=== PATIENT | female | born 1975 | race American Indian/Alaskan Native ===

== ENCOUNTER 2016-09-13 12:01 | Emergency (ER) | payer MEDICARE, MEDICAID ==
[2016-09-13 12:07] VITALS: BMI 23.8
[2016-09-13 12:20] VITALS: TEMP 98.6
[2016-09-13] MEDS ORDERED: Sodium Chloride 0.9% 1,000 ML IV SCH (12:41)
[2016-09-13] MEDS ORDERED: TRIMETHOPRIM IVPB SCH (12:45)
[2016-09-13] MEDS ORDERED: SULFAMETHOXAZOLE IVPB SCH (12:45)
[2016-09-13] MEDS ORDERED: DEXTROSE 5% IVPB SCH (12:45)
[2016-09-13] MEDS ORDERED: WATER IVPB SCH (12:45)
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
[2016-09-13 13:07] LABS: URINE BILIRUBIN NEGATIVE (NEGATIVE); URINE BLOOD SMALL (NEGATIVE); URINE GLUCOSE (UA) NEGATIVE (NEGATIVE); URINE KETONE NEGATIVE (NEGATIVE); URINE LEUKOCYTE ESTERASE NEGATIVE Leu/uL (NEGATIVE); URINE PROTEIN TRACE mg/dL (<30 mg/dL)
[2016-09-13 13:08] LABS: URINE APPEARANCE CLEAR (CLEAR); URINE COLOR YELLOW (YELLOW)
[2016-09-13 13:10] LABS: URINE AMORPHOUS SEDIMENT FEW; URINE BACTERIA MANY (NEG)
[2016-09-13 13:24] LABS: ADD MANUAL DIFF? NO
[2016-09-13 13:39] LABS: BASO # 0.02 K/mm3 (0.0-2.0); BASO % 0.3 % (0.0-3.0); EOS # 0.1 (0.0-0.7); EOS % 0.9 % (1.5-5.0); GRAN # 4.34 (1.4-6.5); GRAN % 62.8 % (50.0-68.0); HEMATOCRIT 37.4 % (36.0-48.0); LYMPH # 1.9 (1.2-3.4); LYMPH % 27.2 % (22.0-35.0); MEAN CELL VOLUME 90.8 fL (80.0-105.0); MEAN CORPUSCULAR HEMOGLOBIN 31.8 pg (25.0-35.0); MEAN PLATELET VOLUME 9.6 fl (7.0-11.0); MONO # 0.6 (0.1-0.6); MONO % 8.8 % (1.0-6.0); PLATELET COUNT 230 10^3/uL (120.0-450.0); RED CELL DISTRIBUTION WIDTH 12.5 % (11.5-14.5); WHITE BLOOD COUNT 6.9 10^3/ul (4.5-11.0)
[2016-09-13 13:44] LABS: ALKALINE PHOSPHATASE 53 U/L (38-133); ALT/SGPT 23 U/L (7-56); AST/SGOT 18 U/L (15-39); BILIRUBIN,TOTAL 0.6 mg/dL (0.2-1.3); BLOOD UREA NITROGEN 9 mg/dL (7-21); CARBON DIOXIDE 26 mmol/L (21-33); CHLORIDE 108 mmol/L (98-107); GFR AFRICAN-AMERICAN > 60; GLUCOSE,RANDOM 76 mg/dL (70-110); POTASSIUM 4.1 mmol/L (3.6-5.0); SODIUM 138 mmol/L (132-148); TOTAL PROTEIN 7.5 g/dL (5.8-8.3)
[2016-09-13] MEDS ORDERED: Ketamine 10 mg/ml Inj (20 ml) IV ONE (13:57)
[2016-09-13] MEDS ORDERED: Midazolam 5 MG/5 ML VIAL IVP ONE (13:59)
[2016-09-13] MEDS ORDERED: ceFAZolin 1 gm in NS 1 GM/100 ML BAG IVPB STA (14:58)
[2016-09-13 15:12] VITALS: RESP 16
--- NOTE | 2016-09-13 16:12 | ED.MODSED ---
Prod Sedation PRE-PROCEDURE - Pre-Anesthesia Chief Complaint: Abnormal Skin Integrity Past Medical History: Medications Reviewed, Allergies Reviewed, Record Review Previous Surgies: Reviewed Family History/Social History: Reviewed - Physical Exam/Review of Systems Vital Signs Reviewed: Yes Cardiovascular: Regular Rate and Rhythm, Normal S1, S2. denies: Murmurs Respiratory/Chest: Clear to Auscultation, Good Air Exchange. denies: Respiratory Distress, Accessory Muscle Use, Wheezes, Rales, Rhonchi, Tachypneic Neurological: GCS=15, Speech Normal Abdomen: Normal Bowel Sounds. denies: Tenderness, Distention, Peritoneal Signs Mental Status: Alert and Oriented X 3. denies: Confused, Agitated, Lethargic - Pre-Procedure Airway Assessment Inability to extend neck:: No Mouth opening less than two finger breadth:: No Diagnosis of sleep apnea:: No ASA Criteria: 1 - Healthy, normal. 2 - Mild systemic disease (No functional limitations, mildline obesity, DM withot complications, Hypertention). 3 - Severe systemic disease (Some functional limitation, stable angina, morbid obesity, controlled COPD/Asthma/CHF). 4 - Sever systemic disease constant threat to life (Unstable angina, active symptoms of COPD/Asthma, CHF/ Hypertension. 5 - Moribund ASA Clarification: ASA II Mallampati (airway): Class II Time Out Process - Time Out Process Patient identification (MR# and name from ID Band): Yes Procedure verified: Yes Consent read aloud and agreed upon: Yes Correct Site/Side marked and visibe to team after prepping and draping (unless exempt): Yes Implants, special equipment and x-rays available: Not Applicable Prophylactic antibiotic given (if applicable): Yes Correct position: Yes Correct Team: Yes List all team members present: Dr Griffin- Attending. Dr Gamez- Resident. Perla Smith- Nurse All team members are in agreement: Yes Prod Sedation INTRA-PROCEDURE - Medications Medications Given: Discontinued Medications Trimethoprim/Sulfamethoxazole (160 mg/ Dextrose) 500 mls @ 250 mls/hr IVPB Q12 JASE Last Admin: 09/13/16 13:24 Dose: 250 mls/hr Sodium Chloride (Sodium Chloride 0.9%) 1,000 mls @ 100 mls/hr IV .Q10H JASE Last Admin: 09/13/16 13:24 Dose: 100 mls/hr Cefazolin Sodium (Ancef 1gm In Ns) 1 gm in 100 mls @ 100 mls/hr IVPB STAT STA PRN Reason: Protocol Stop: 09/13/16 15:57 Last Admin: 09/13/16 16:11 Dose: 100 mls/hr Ketamine HCl (Ketalar) 130 mg IV ONCE ONE Stop: 09/13/16 13:58 Last Admin: 09/13/16 14:20 Dose: 130 mg Ketorolac Tromethamine (Toradol) 10 mg IVP STAT STA Stop: 09/13/16 12:42 Last Admin: 09/13/16 13:23 Dose: 10 mg Re-Assess: ELVA Pain Assessment Document 09/13/16 14:23 HI (Rec: 09/13/16 16:11 [place] [facility] [id number] Pain Reassessment Is this a pain reassessment? Yes Sleep Is patient sleeping during reassessment? Yes Midazolam HCl (Versed Inj) 1 mg IVP ONCE ONE Stop: 09/13/16 14:00 Last Admin: 09/13/16 14:20 Dose: 1 mg Ondansetron HCl (Zofran Inj) 4 mg IVP ONCE ONE Stop: 09/13/16 15:10 Last Admin: 09/13/16 15:23 Dose: 4 mg Vital Signs: BP 101/65, hr 61, RR 12, O2 sat 98% on room air. Proc Sedation POST-PROCEDURE - REACT Score REACT Score: 2 - Post Procedure Physician Note Post Procedure Note: Patient alert and oriented x3. Patient able to tolerate diet, and able to ambulate. - Discharge Checklist Written MD order for Discharge: Yes Vital signs assessed and are consistent with pre-procedure reading: No (bp 140/ 76, HR 98, RR 8, O2 sat 98% on room air. ) Minimal nausea, vomiting, and dizziness: Yes (no nausea, + vomited x1. ) Ambulates to pre-procedural level: No (lightheaded with ambulation. ) Alert and oriented to pre-procedural level: Yes Responsible adult escort present: Yes (patient's son and daughter in law. ) - X DISCHARGE INSTRUCTIONS GIVEN:: Yes (can't drive for at least 24 hrs, rest today. wound care instructions)
[2016-09-13 19:16] VITALS: BP 103/62; PULSE 68; O2SAT 95
== END 2016-09-13 19:03 | disposition home or self-care (01) ==
LOC: ED 12:01
DX: L02.01 Cutaneous abscess of face (principal); G35 Multiple sclerosis
CPT/HCPCS: 10060; 80053; 81001; 85025; 87040; 87070; 96374; 96375; 99284; J0690; J1885; J2250; J2405; J7040; J7060

== ENCOUNTER 2018-02-25 09:25 | Emergency (ER) | payer MEDICAID, MEDICARE ==
[2018-02-25 09:33] VITALS: BMI 27.4
[2018-02-25 09:37] VITALS: RESP 18; O2SAT 99
[2018-02-25] MEDS ORDERED: DiphenhydrAMINE 50 mg/ml Inj IVP STA (09:51)
--- NOTE | 2018-02-25 10:24 | ED PDOC ---
Arrival/HPI - General Chief Complaint: Headache Historian: Patient - History of Present Illness Narrative History of Present Illness (Text): 02/25/18 10:21 42yo female with pmhx of DVT, MS, hypertension, hypothyroid, who present with complaint of intermittent left sided headache x 2weeks. States she saw her PMD and he referred her to her Neurologist. Notes taking Alefabiola 2days ago without relieve. States she came to ED because of the prolonged headache. +Nausea and left eye pain. Denies dizziness, visual acuity changes, focal weakness, neck pain, abdominal pain, any other complaint. Report history of brain tumor. Past Medical History - Provider Review Nursing Documentation Reviewed: Yes - Infectious Disease Hx of Infectious Diseases: None - Tetanus Immunization Tetanus Immunization: Unknown - Pulmonary Hx Asthma: Yes Hx Pulmonary Embolism: Yes (2014) Hx Sleep Apnea: Yes (C PAP 12) - Neurological Hx Migraine: Yes Hx Multiple Sclerosis: Yes Other/Comment: brain tumor for 13 years - HEENT Hx HEENT Disorder: Yes (BLURRY VISION SOMETIMES) Other/Comment: left eye with blood shot - Renal Hx Renal Disorder: No - Endocrine/Metabolic Hx Hypothyroidism: Yes - Hematological/Oncological Hx Anemia: Yes - Integumentary Hx Dermatological Disorder: Yes Hx Eczema: Yes (BACK LEGS) - Musculoskeletal/Rheumatological Hx Rheumatoid Arthritis: Yes - Gastrointestinal Hx Gastritis: Yes - Psychiatric Hx Anxiety: Yes Hx Panic Disorder: Yes Hx Substance Use: No - Surgical History Other/Comment: FILTER PLACEMENT, VARIOUS CYST REMOVAL - Anesthesia Hx Anesthesia: Yes Hx Anesthesia Reactions: No Hx Malignant Hyperthermia: No - Suicidal Assessment Feels Threatened In Home Enviroment: No Family/Social History - Physician Review Nursing Documentation Reviewed: Yes Family/Social History: Unknown Family HX Smoking Status: Light Smoker < 10 Cigarettes Daily Hx Alcohol Use: No Hx Substance Use: No Hx Substance Use Treatment: No Allergies/Home Meds Allergies/Adverse Reactions: Allergies acetaminophen [From Percocet] Allergy (Verified 03/31/17 15:13) RASH codeine Allergy (Verified 03/31/17 15:13) SHORTNESS OF BREATH oxycodone HCl [From Percocet] Allergy (Verified 03/31/17 15:13) RASH Penicillins Allergy (Verified 03/31/17 15:13) SHORTNESS OF BREATH ranitidine HCl [From Zantac] Allergy (Verified 03/31/17 15:13) ANAPHYLAXIS apple Adverse Reaction (Verified 03/31/17 15:13) RASH pistachios Allergy (Uncoded 03/31/17 15:13) SHORTNESS OF BREATH Home Medications: Home Meds Medication Instructions Recorded Confirmed RX: Alprazolam [Xanax] 2 mg PO TID 02/07/14 07/13/17 RX: Cyanocobalamin (Vitamin B-12) 100 mcg IM Q30D 07/15/15 07/13/17 [Cyanocobalamin Injection] RX: Furosemide [Lasix] 40 mg PO PRN 10/03/15 07/13/17 RX: Levothyroxine [Synthroid] 0.075 mg PO DAILY 10/03/15 07/13/17 Review of Systems - Physician Review All systems were reviewed & negative as marked: Yes - Review of Systems Constitutional: Normal Eyes: Normal ENT: Normal Respiratory: Normal Cardiovascular: Normal Gastrointestinal: Normal Genitourinary Female: Normal Musculoskeletal: Normal Skin: Normal Neurological: Headache. absent: Dizziness, Focal Weakness Endocrine: Normal Hemo/Lymphatic: Normal Psychiatric: Normal Physical Exam Vital Signs Reviewed: Yes Vital Signs Temp Pulse Resp BP Pulse Ox 02/25/18 09:26 98.2 F 77 18 164/115 H 99 Temperature: Afebrile Blood Pressure: Hypertensive Pulse: Regular Respiratory Rate: Normal Appearance: Positive for: Well-Appearing, Non-Toxic, Comfortable Pain Distress: None Mental Status: Positive for: Alert and Oriented X 3 - Systems Exam Head: Present: Atraumatic, Normocephalic Pupils: Present: PERRL Extroacular Muscles: Present: EOMI Conjunctiva: Present: Normal Mouth: Present: Moist Mucous Membranes Neck: Present: Normal Range of Motion Respiratory/Chest: Present: Clear to Auscultation, Good Air Exchange. No: Respiratory Distress, Accessory Muscle Use Cardiovascular: Present: Regular Rate and Rhythm, Normal S1, S2. No: Murmurs Abdomen: No: Tenderness, Distention, Peritoneal Signs Back: Present: Normal Inspection Upper Extremity: Present: Normal Inspection. No: Cyanosis, Edema Lower Extremity: Present: Normal Inspection. No: Edema Neurological: Present: GCS=15, CN II-XII Intact, Speech Normal, Motor Func Grossly Intact, Normal Sensory Function, Normal Cerebellar Funct, Norm Deep Tendon Reflexes, Gait Normal, Memory Normal, Normal 2Pt Descrimination, Other (No focal neurological deficit) Skin: Present: Warm, Dry, Normal Color. No: Rashes Psychiatric: Present: Alert, Oriented x 3, Normal Insight, Normal Concentration Medical Decision Making ED Course and Treatment: 02/25/18 10:48 42yo female present with complaint of intermittent left sided headache x 2weeks. She was neurologically intact in ED. Her neck was supple and she had no meningeal sign. Toradol Reglan Benadryl, L NS Head CT Will reassess Head CT IMPRESSION: Normal CT of the Head. PT states her headache improved in ED with medication. Result was DW the pt and she was referred to her Neuro - RAD Interpretation Radiology Orders: 02/25/18 09:51 HEAD W/O CONTRAST [CT] Stat - Medication Orders Current Medication Orders: Discontinued Medications Diphenhydramine HCl (Benadryl) 25 mg IVP STAT STA Stop: 02/25/18 09:52 Ketorolac Tromethamine (Toradol) 30 mg IVP STAT STA Stop: 02/25/18 09:51 Metoclopramide HCl (Reglan) 10 mg IVP STAT STA Stop: 02/25/18 09:52 Disposition/Present on Arrival - Present on Arrival Any Indicators Present on Arrival: No History of DVT/PE: No History of Uncontrolled Diabetes: No Urinary Catheter: No History of Decub. Ulcer: No History Surgical Site Infection Following: None - Disposition Have Diagnosis and Disposition been Completed?: Yes Diagnosis: Headache Disposition: HOME/ ROUTINE Disposition Time: 11:05 Patient Plan: Discharge Condition: STABLE Discharge Instructions (ExitCare): Headache, Adult Additional Instructions: Follow up with your Neurologist Return to ED for any new or worsening symptoms Referrals: Jerson Gallagher MD [Staff Provider] - Follow up with primary Forms: [employer] ([place]i)
--- NOTE | 2018-02-25 10:42 | CT ---
Date of service: 02/25/2018 PROCEDURE: CT HEAD WITHOUT CONTRAST. HISTORY: headache COMPARISON: None available. TECHNIQUE: Axial computed tomography images were obtained through the head/brain without intravenous contrast. Radiation dose: Total exam DLP = 919.06 mGy-cm. This CT exam was performed using one or more of the following dose reduction techniques: Automated exposure control, adjustment of the mA and/or kV according to patient size, and/or use of iterative reconstruction technique. FINDINGS: HEMORRHAGE: No intracranial hemorrhage. BRAIN: No mass effect or edema. No atrophy or chronic microvascular ischemic changes. VENTRICLES: Unremarkable. No hydrocephalus. CALVARIUM: Unremarkable. PARANASAL SINUSES: Unremarkable as visualized. No significant inflammatory changes. MASTOID AIR CELLS: Unremarkable as visualized. No inflammatory changes. OTHER FINDINGS: None. IMPRESSION: Normal CT of the Head.
[2018-02-25 11:57] VITALS: BP 164/85; PULSE 76; TEMP 98
== END 2018-02-25 11:57 | disposition home or self-care (01) ==
LOC: ED 09:25
DX: R51 Headache (principal); F17.210 Nicotine dependence, cigarettes, uncomplicated; E03.9 Hypothyroidism, unspecified; I10 Essential (primary) hypertension; M06.9 Rheumatoid arthritis, unspecified; G35 Multiple sclerosis
CPT/HCPCS: 70450; 96374; 96375; 99285; J1200; J1885

== ENCOUNTER 2018-04-22 15:09 | Inpatient (IN) | payer MEDICARE, MEDICAID ==
[2018-04-22 15:17] VITALS: BMI 27.1
--- NOTE | 2018-04-22 15:30 | ED PDOC ---
Arrival/HPI - General Chief Complaint: Headache Time Seen by Provider: 04/22/18 15:19 Historian: Patient - History of Present Illness Narrative History of Present Illness (Text): 04/22/18 15:30 A 42 year old female, whose past medical history includes blood clots, DVT, MS, hypertension, and hypothyroid, presents to the emergency department complaining of dizziness and nausea since 12:30-1pm earlier today. Patient reports she was talking to her family on the phone when she sat up and felt spinning sensations that is worse with head movement, better with eyes closed. Patient notes she took xanax however symptoms persisted. Patient denies any chest pain, vomiting, diarrhea, or any other complaints. PMD: Dr. Townsend Time/Duration: 1-3 hours (earlier today) Symptom Onset: Sudden Symptom Course: Unchanged Activities at Onset: Light Context: Home Past Medical History - Provider Review Nursing Documentation Reviewed: Yes - Infectious Disease Hx of Infectious Diseases: None - Tetanus Immunization Tetanus Immunization: Unknown - Pulmonary Hx Asthma: Yes Hx Pulmonary Embolism: Yes (2014) Hx Sleep Apnea: Yes (C PAP 12) - Neurological Hx Migraine: Yes Hx Multiple Sclerosis: Yes Other/Comment: brain tumor for 13 years - HEENT Hx HEENT Disorder: Yes (BLURRY VISION SOMETIMES) - Renal Hx Renal Disorder: No - Endocrine/Metabolic Hx Hypothyroidism: Yes - Hematological/Oncological Hx Anemia: Yes - Integumentary Hx Dermatological Disorder: Yes Hx Eczema: Yes (BACK LEGS) - Musculoskeletal/Rheumatological Hx Rheumatoid Arthritis: Yes - Gastrointestinal Hx Gastritis: Yes - Psychiatric Hx Anxiety: Yes Hx Panic Disorder: Yes Hx Substance Use: No - Surgical History Other/Comment: FILTER PLACEMENT, VARIOUS CYST REMOVAL - Anesthesia Hx Anesthesia: Yes Hx Anesthesia Reactions: No Hx Malignant Hyperthermia: No - Suicidal Assessment Feels Threatened In Home Enviroment: No Family/Social History - Physician Review Nursing Documentation Reviewed: Yes Family/Social History: No Known Family HX Smoking Status: Light Smoker < 10 Cigarettes Daily Hx Alcohol Use: No Hx Substance Use: No Hx Substance Use Treatment: No Allergies/Home Meds Allergies/Adverse Reactions: Allergies acetaminophen [From Percocet] Allergy (Verified 03/31/17 15:13) RASH codeine Allergy (Verified 03/31/17 15:13) SHORTNESS OF BREATH oxycodone HCl [From Percocet] Allergy (Verified 03/31/17 15:13) RASH Penicillins Allergy (Verified 03/31/17 15:13) SHORTNESS OF BREATH ranitidine HCl [From Zantac] Allergy (Verified 03/31/17 15:13) ANAPHYLAXIS apple Adverse Reaction (Verified 03/31/17 15:13) RASH pistachios Allergy (Uncoded 03/31/17 15:13) SHORTNESS OF BREATH Home Medications: Home Meds Medication Instructions Recorded Confirmed Alprazolam [Xanax] 2 mg PO TID 02/07/14 07/13/17 Cyanocobalamin (Vitamin B-12) 100 mcg IM Q30D 07/15/15 07/13/17 [Cyanocobalamin Injection] Furosemide [Lasix] 40 mg PO PRN 10/03/15 07/13/17 Levothyroxine [Synthroid] 0.075 mg PO DAILY 10/03/15 07/13/17 Review of Systems - Physician Review All systems were reviewed & negative as marked: Yes - Review of Systems Cardiovascular: absent: Chest Pain Gastrointestinal: absent: Diarrhea, Vomiting Physical Exam - Physical Exam Narrative Physical Exam (Text): 04/22/18 15:32 Constitutional: No acute distress. Head: Normocephalic. Atraumatic. Eyes: PERRL. ENT: Moist mucous membranes. Neck: Supple. No midline tenderness. Cardiovascular: Regular rate. Chest: No tenderness. No rib cage tenderness. Respiratory: Clear to auscultation bilaterally. GI: Soft. Nontender. Nondistended. Back: No CVA tenderness. No midline tenderness. Musculoskeletal: No tenderness or swelling of extremities. Skin: No rash. Neurologic: Alert, no focal deficit. Reproducible dizziness with sitting up and laying down. Vital Signs Reviewed: Yes Temperature: Afebrile Blood Pressure: Normal Pulse: Regular Respiratory Rate: Normal Medical Decision Making ED Course and Treatment: 04/22/18 15:35 Impression: 42 year old female presents to the emergency department complaining of dizziness and nausea. Plan: -- Head CT without contrast -- CMP -- CBC -- COAGs -- Chest X-ray -- Antivert -- Reassess and disposition Prior Visits: Notes and results from previous visits were reviewed. Progress Notes: 04/22/18 15:40 EKG: Ordered, reviewed, and independently interpreted the EKG. Rate : 60 BPM Rhythm : NSR Interpretation : No ST-T wave changes. 04/22/18 17:27 Vertigo intractible despite treatment. FINDINGS: HEMORRHAGE: No acute parenchymal, subarachnoid nor extra-axial hemorrhage. BRAIN: There appear to be a very subtle small focal areas of low attenuation in the posterior frontoparietal deep white matter best seen on axial image number 37 and 38. Findings are could represent artifact however other etiologies i ncluding chronic ischemia, migraine headaches or post infectious/inflammatory sequela. Atypical presentation of a demyelinating disease process not excluded. Follow-up MRI of the brain is recommended. The sella turcica is somewhat expanded and undercut in contains CSF density. Findings most likely represent partially empty sella however concomitant small arachnoid cyst is also suspected. VENTRICLES: No obstructive hydrocephalus. CALVARIUM: Calvarium otherwise appears intact. PARANASAL SINUSES: Mild mucosal thickening noted within the right chamber sphenoid sinus. There is also mild mucosal thickening left aspect of the frontal sinus. MASTOID AIR CELLS: Unremarkable as visualized. No inflammatory changes. OTHER FINDINGS: None. IMPRESSION: There are small ill-defined areas of low attenuation within the the bilateral posterior frontoparietal white matter as above. Findings could conceivably represent artifact though underlying nonspecific gliosis from several possibility etiologies mentioned above to be excluded. Follow-up MRI of the brain is therefore recommended. The sella turcica is expanded and somewhat undercut containing CSF. Findings consistent with empty sella however concomitant arachnoid cyst may be present. Dr. Alexander accepts patient to hospitalist service. - Scribe Statement The provider has reviewed the documentation as recorded by the Lina Vega All medical record entries made by the Scribe were at my direction and personally dictated by me. I have reviewed the chart and agree that the record accurately reflects my personal performance of the history, physical exam, medical decision making, and the department course for this patient. I have also personally directed, reviewed, and agree with the discharge instructions and disposition.\ Disposition/Present on Arrival - Present on Arrival Any Indicators Present on Arrival: No History of DVT/PE: No History of Uncontrolled Diabetes: No Urinary Catheter: No History of Decub. Ulcer: No History Surgical Site Infection Following: None - Disposition Have Diagnosis and Disposition been Completed?: Yes Diagnosis: Recurrent vertigo Disposition: HOSPITALIZED Disposition Time: 17:28 Patient Plan: Observation Condition: FAIR Forms: [employer] (Armenian)
[2018-04-22 16:15] LABS: BASO # 0.02 K/mm3 (0.0-2.0); BASO % 0.3 % (0.0-3.0); EOS # 0.1 (0.0-0.7); HEMOGLOBIN 13.4 g/dL (12.0-16.0); MEAN CELL VOLUME 92.6 fl (80.0-105.0); MEAN CORPUSCULAR HEMOGLOBIN 31.2 pg (25.0-35.0); MEAN CORPUSCULAR HGB CONC 33.7 g/dl (31.0-37.0); MEAN PLATELET VOLUME 9.9 fl (7.0-11.0); MONO # 0.5 (0.1-0.6); RBC 4.3 10^6/uL (3.5-6.1); RED CELL DISTRIBUTION WIDTH 12.6 % (11.5-14.5); WHITE BLOOD COUNT 7.1 10^3/uL (4.5-11.0)
[2018-04-22 16:17] LABS: ALBUMIN 3.8 g/dL (3.0-4.8); ALT/SGPT 19 U/L (7-56); AST/SGOT 17 U/L (14-36); BLOOD UREA NITROGEN 13 mg/dL (7-21); CALCIUM 8.7 mg/dL (8.4-10.5); GFR NON-AFRICAN AMERICAN > 60
[2018-04-22 16:19] LABS: INR 1.25; PARTIAL THROMBOPLASTIN TIME 35.3 Seconds (26.9-38.3); PROTHROMBIN TIME 13.9 SECONDS (9.4-12.5)
[2018-04-22 17:18] LABS: EOS % 1.6 % (1.5-5.0); LYMPH # 1.9 (1.2-3.4); LYMPH % 28.7 % (22.0-35.0); MONO % 8.1 % (1.0-6.0)
--- NOTE | 2018-04-22 17:20 | CT ---
Date of service: 04/22/2018 PROCEDURE: CT HEAD WITHOUT CONTRAST. HISTORY: Vertigo, hit head when fell COMPARISON: Comparison made with prior CT scan brain dated 02/25/2018. TECHNIQUE: Axial computed tomography images were obtained through the head/brain without intravenous contrast. Radiation dose: Total exam DLP = 912.56 mGy-cm. This CT exam was performed using one or more of the following dose reduction techniques: Automated exposure control, adjustment of the mA and/or kV according to patient size, and/or use of iterative reconstruction technique. FINDINGS: HEMORRHAGE: No acute parenchymal, subarachnoid nor extra-axial hemorrhage. BRAIN: There appear to be a very subtle small focal areas of low attenuation in the posterior frontoparietal deep white matter best seen on axial image number 37 and 38. Findings are could represent artifact however other etiologies including chronic ischemia, migraine headaches or post infectious/inflammatory sequela. Atypical presentation of a demyelinating disease process not excluded. Follow-up MRI of the brain is recommended. The sella turcica is somewhat expanded and undercut in contains CSF density. Findings most likely represent partially empty sella however concomitant small arachnoid cyst is also suspected. VENTRICLES: No obstructive hydrocephalus. CALVARIUM: Calvarium otherwise appears intact. PARANASAL SINUSES: Mild mucosal thickening noted within the right chamber sphenoid sinus. There is also mild mucosal thickening left aspect of the frontal sinus. MASTOID AIR CELLS: Unremarkable as visualized. No inflammatory changes. OTHER FINDINGS: None. IMPRESSION: There are small ill-defined areas of low attenuation within the the bilateral posterior frontoparietal white matter as above. Findings could conceivably represent artifact though underlying nonspecific gliosis from several possibility etiologies mentioned above to be excluded. Follow-up MRI of the brain is therefore recommended. The sella turcica is expanded and somewhat undercut containing CSF. Findings consistent with empty sella however concomitant arachnoid cyst may be present.
--- NOTE | 2018-04-22 17:30 | RAD ---
Date of service: 04/22/2018 HISTORY: vertigo COMPARISON: Chest radiograph dated 05/26/2016 FINDINGS: LUNGS: No active pulmonary disease. PLEURA: No significant pleural effusion identified, no pneumothorax apparent. CARDIOVASCULAR: No aortic atherosclerotic calcification present. Normal cardiac size. No pulmonary vascular congestion. OSSEOUS STRUCTURES: No significant abnormalities. VISUALIZED UPPER ABDOMEN: Normal. OTHER FINDINGS: None. IMPRESSION: No active disease.
[2018-04-22] MEDS: Sodium Chloride 0.9% 1,000 ML IV SCH (18:55)
[2018-04-22 19:00] LABS: PH,URINE 6.5 (4.7-8.0); URINE BILIRUBIN NEGATIVE (NEGATIVE); URINE BLOOD TRACE-INTACT (NEGATIVE); URINE GLUCOSE (UA) NEGATIVE (NEGATIVE); URINE LEUKOCYTE ESTERASE NEGATIVE Leu/uL (NEGATIVE); URINE PROTEIN NEGATIVE mg/dL (<30 mg/dL); URINE UROBILINOGEN 0.2 E.U./dL (<1 E.U./dL)
[2018-04-22 19:04] LABS: URINE APPEARANCE SLIGHT-CLOUDY (CLEAR); URINE COLOR YELLOW (YELLOW)
--- NOTE | 2018-04-22 19:17 | CP.PCM.HP ---
<RobySheeba james - Last Filed: 04/23/18 01:03> History of Present Illness - History of Present Illness History of Present Illness: Sheeba Ca, PGY-1 Medicine H&P Note for Dr. Eagle: CC: Dizziness and nausea Pt is a 42 yo F with pmhx of DVT, clots, MS, HTN, GERD and hypothyroidism who presents a period of dizziness and nausea which started at 1 today. She states that she was getting up from her couch when she noted that the room was spinning and then she noted her face was spinning. She then noted that her vision became blurry and she fell backwards onto the couch. She reports that she had LOC for an unknown period of time and when she awoke she denies having any bladder or bowel incontinence or tongue biting. She states that she also noted a R sided headache which started once she regained consciousness. Pt reports that she is complaint on all medications. At this time pt denies fevers, chills, SOB, cough, chest pain, palpitations, abd pain, n/v, diarrhea, dysuira or hematuria. She admits to mild headache and continued dizziness especially when she sits up and constipation. Pt is able to lay flat and is able to turn her head whle laying flat without issue. Pmhx: DVT, Blood clots, MS, HTN, Hypothyroidism, Pshx: 3 c-sections, 3 hiatal hernia repairs, lap band and lap band reversal, ovarian cyst removal Meds: Pantoprazole, synthroid, lasix 40 PRN, colace, Xanax All: Tylenol Soc: 1/2 ppd x 30yrs, denies Etoh or illicit drug use Fam: Mom: HTN, HLD, DM. Dad: HTN, HLD, prostatectomy PMD: Jeffrey-Srikanth Pharm: [facility] in Present on Admission - Present on Admission Any Indicators Present on Admission: No Review of Systems - Review of Systems Review of Systems: 12 Point ROS reviewed and negative except noted in HPI above. Past Patient History - Infectious Disease Hx of Infectious Diseases: None - Tetanus Immunizations Tetanus Immunization: Unknown - Past Medical History & Family History Past Medical History?: Yes - Past Social History Smoking Status: Light Smoker < 10 Cigarettes Daily - PULMONARY Hx Asthma: Yes Hx Pulmonary Embolism: Yes (2014) Hx Sleep Apnea: Yes (C PAP 12) - NEUROLOGICAL Hx Migraine: Yes Hx Multiple Sclerosis: Yes Other/Comment: brain tumor for 13 years - HEENT Hx HEENT Problems: Yes (BLURRY VISION SOMETIMES) - RENAL Hx Chronic Kidney Disease: No - ENDOCRINE/METABOLIC Hx Hypothyroidism: Yes - HEMATOLOGICAL/ONCOLOGICAL Hx Anemia: Yes - INTEGUMENTARY Hx Dermatological Problems: Yes Hx Eczema: Yes (BACK LEGS) - MUSCULOSKELETAL/RHEUMATOLOGICAL Hx Rheumatoid Arthritis: Yes - GASTROINTESTINAL Hx Gastritis: Yes - PSYCHIATRIC Hx Anxiety: Yes Hx Panic Symptoms: Yes Hx Substance Use: No - SURGICAL HISTORY Other/Comment: FILTER PLACEMENT, VARIOUS CYST REMOVAL - ANESTHESIA Hx Anesthesia: Yes Hx Anesthesia Reactions: No Hx Malignant Hyperthermia: No Meds Allergies/Adverse Reactions: Allergies Allergy/AdvReac Type Severity Reaction Status Date / Time acetaminophen [From Percocet] Allergy RASH Verified 03/31/17 15:13 codeine Allergy SHORTNESS Verified 03/31/17 15:13 OF BREATH oxycodone HCl [From Percocet] Allergy RASH Verified 03/31/17 15:13 Penicillins Allergy SHORTNESS Verified 03/31/17 15:13 OF BREATH ranitidine HCl [From Zantac] Allergy ANAPHYLAXIS Verified 03/31/17 15:13 apple AdvReac RASH Verified 03/31/17 15:13 pistachios Allergy SHORTNESS Uncoded 03/31/17 15:13 OF BREATH Physical Exam - Constitutional Appears: Non-toxic, No Acute Distress - Head Exam Head Exam: ATRAUMATIC, NORMAL INSPECTION, NORMOCEPHALIC - Eye Exam Eye Exam: EOMI, Normal appearance, PERRL. absent: Nystagmus Pupil Exam: PERRL - Respiratory Exam Respiratory Exam: Clear to Auscultation Bilateral, NORMAL BREATHING PATTERN. absent: Accessory Muscle Use, Rales, Rhonchi, Wheezes, Respiratory Distress - Cardiovascular Exam Cardiovascular Exam: RRR, +S1, +S2. absent: Gallop, Rubs - GI/Abdominal Exam GI & Abdominal Exam: Normal Bowel Sounds, Soft. absent: Distended, Firm, Guarding, Tenderness - Extremities Exam Extremities exam: Positive for: normal inspection. Negative for: normal capillary refill, pedal pulses present - Back Exam Back exam: NORMAL INSPECTION. absent: CVA tenderness (L), CVA tenderness (R) - Neurological Exam Neurological exam: Alert, Oriented x3 - Psychiatric Exam Psychiatric exam: Normal Affect, Normal Mood - Skin Skin Exam: Dry, Normal Color, Warm Results - Vital Signs Recent Vital Signs: Last Vital Signs Temp 97.8 F 04/22/18 15:10 Pulse 70 04/22/18 18:57 Resp 18 04/22/18 18:57 BP 120/70 04/22/18 18:57 Pulse Ox 99 04/22/18 18:57 - Labs Result Diagrams: 04/22/18 15:50 04/22/18 15:50 Labs: Laboratory Results - last 24 hr 04/22/18 04/22/18 04/22/18 15:50 15:50 15:50 WBC 7.1 RBC 4.30 Hgb 13.4 Hct 39.8 MCV 92.6 MCH 31.2 MCHC 33.7 RDW 12.6 Plt Count 225 MPV 9.9 Neut % (Auto) 61.3 Lymph % (Auto) 28.7 [place] % (Auto) 8.1 H Eos % (Auto) 1.6 Baso % (Auto) 0.3 Lymph # (Auto) 1.9 [place] # (Auto) 0.5 Eos # (Auto) 0.1 Baso # (Auto) 0.02 Absolute Neuts (auto) 4.10 PT 13.9 H INR 1.25 APTT 35.3 Sodium 137 Potassium 3.8 Chloride 108 H Carbon Dioxide 25 Anion Gap 7 L BUN 13 Creatinine 0.7 Est GFR ( Amer) > 60 Est GFR (Non-Af Amer) > 60 Random Glucose 76 Calcium 8.7 Total Bilirubin 0.5 AST 17 ALT 19 Alkaline Phosphatase 50 Total Protein 7.6 Albumin 3.8 Globulin 3.8 Albumin/Globulin Ratio 1.0 L Urine Color Urine Appearance Urine pH Ur Specific [place] Urine Protein Urine Glucose (UA) Urine Ketones Urine Blood Urine Nitrate Urine Bilirubin Urine Urobilinogen Ur Leukocyte Esterase Urine RBC Urine WBC Ur Epithelial Cells 04/22/18 18:53 WBC RBC Hgb Hct MCV MCH MCHC RDW Plt Count MPV Neut % (Auto) Lymph % (Auto) [place] % (Auto) Eos % (Auto) Baso % (Auto) Lymph # (Auto) [place] # (Auto) Eos # (Auto) Baso # (Auto) Absolute Neuts (auto) PT INR APTT Sodium Potassium Chloride Carbon Dioxide Anion Gap BUN Creatinine Est GFR ( Amer) Est GFR (Non-Af Amer) Random Glucose Calcium Total Bilirubin AST ALT Alkaline Phosphatase Total Protein Albumin Globulin Albumin/Globulin Ratio Urine Color Yellow Urine Appearance Slight-cloudy Urine pH 6.5 Ur Specific [place] 1.020 Urine Protein Negative Urine Glucose (UA) Negative Urine Ketones Negative Urine Blood Trace-intact H Urine Nitrate Negative Urine Bilirubin Negative Urine Urobilinogen 0.2 Ur Leukocyte Esterase Negative Urine RBC 5 - 10 H Urine WBC 2 - 5 Ur Epithelial Cells 6 - 8 H Assessment & Plan - Assessment and Plan (Free Text) Assessment: Pt is a 42 yo F with pmhx of DVT, clots, MS, HTN, GERD and hypothyroidism who presents a period of dizziness and nausea which started at [address] head done which showed: There are small ill-defined areas of low attenuation within the the bilateral posterior frontoparietal white matter as above. Findings could conceivably represent artifact though underlying nonspecific gliosis from several possibility etiologies mentioned above to be excluded. Follow-up MRI of the brain is therefore recommended. The sella turcica is expanded and somewhat undercut containing CSF. Findings consistent with empty sella however concomitant arachnoid cyst may be present. MRI brain for tomorrow is ordered for f/u. Plan: 1) Vertigo: - Pt states that she is still feeling dizziness at this time, and she reports that when she sits up she feels the most dizzy. - Will continue IV hydration NS @ 100/hr - Fall precaution - Seizure precaution - Neuro checks q4 - MRI Brain - Neuro consult - PT consulted - UA - Utox 2) Hypothyroid: - Tsh - Free T4 - Cont home synthroid 3) Hx of HTN: - currently not on medication - Cont to monitor PPx: DVT: Lovenox 40 GI: Protonix Case seen and examined with Dr. Domingo: Sheeba Ca, PGY-1 <Liam Eagle - Last Filed: 04/24/18 15:04> Results - Vital Signs Recent Vital Signs: Last Vital Signs Temp 97.9 F 04/24/18 07:41 Pulse 49 L 04/24/18 07:41 Resp 16 04/24/18 07:41 BP 87/50 L 04/24/18 07:41 Pulse Ox 94 L 04/24/18 07:41 - Labs Result Diagrams: 04/24/18 05:00 04/24/18 05:00 Labs: Laboratory Results - last 24 hr 04/24/18 04/24/18 04/24/18 05:00 05:00 09:20 WBC 5.5 RBC 3.59 Hgb 11.0 L Hct 33.3 L MCV 92.8 MCH 30.6 MCHC 33.0 RDW 12.5 Plt Count 201 MPV 9.6 Neut % (Auto) 34.2 L Lymph % (Auto) 54.5 H [place] % (Auto) 8.2 H Eos % (Auto) 2.9 Baso % (Auto) 0.2 Lymph # (Auto) 3.0 [place] # (Auto) 0.5 Eos # (Auto) 0.2 Baso # (Auto) 0.01 Absolute Neuts (auto) 1.88 Sodium 138 Potassium 3.6 Chloride 109 H Carbon Dioxide 26 Anion Gap 6 L BUN 13 Creatinine 0.9 Est GFR ( Amer) > 60 Est GFR (Non-Af Amer) > 60 Random Glucose 103 Calcium 8.6 Total Bilirubin 0.4 AST 14 ALT 24 Alkaline Phosphatase 44 Total Protein 6.5 Albumin 3.3 Globulin 3.3 Albumin/Globulin Ratio 1.0 L TSH 3rd Generation 0.90 Attending/Attestation - Attestation I have personally seen and examined this patient.: Yes I have fully participated in the care of the patient.: Yes I have reviewed all pertinent clinical information: Yes Notes (Text): 04/24/18 15:01 Patient was seen and exaimned with veterinary medical officer. 42 Yrs old Female with PMH of Pituitary tumor ?,hypothyroidism, anxiety ,PTSD ? and drug abuse who presents a period of dizziness and nausea , Patient also gave questionable syncope.There is no incontinence of urine and stool. Patient does not has any focal deficit.Patient blood pressure is low,Patient is c/o severe dizziness with sitting and refusing to ambulate due to symptoms. We will continue IV hydration.We will monitor Neuro check We will get MRI of Brain. Patient does not has any H/O Multiple sclerosis. We will get Neurology and Psychiatry evaluation We will get Physical therapy evaluation
[2018-04-22 19:18] LABS: BARBITURATES, UR NEGATIVE (NEGATIVE); BENZODIAZEPINES, UR POSITIVE (NEGATIVE); OPIATES, UR NEGATIVE (NEGATIVE); PHENCYCLIDINE, UR NEGATIVE (NEGATIVE)
[2018-04-22 20:34] LABS: FREE T4 0.86 ng/dL (0.78-2.19)
--- NOTE | 2018-04-22 23:12 | CARD ---
APPROVED REPORT Date of service: 04/22/2018 EKG Measurement Heart [id number] <Conclusion> Normal sinus rhythm Low voltage QRS Borderline ECG
[2018-04-23] MEDS: Pantoprazole 40 mg EC Tab PO SCH (06:08)
[2018-04-23] MEDS: Levothyroxine 75 MCG TAB PO SCH (06:08)
[2018-04-23 06:44] LABS: BASO # 0.02 K/mm3 (0.0-2.0); BASO % 0.3 % (0.0-3.0); EOS # 0.1 (0.0-0.7); EOS % 2.4 % (1.5-5.0); HEMOGLOBIN 11.4 g/dL (12.0-16.0); LYMPH # 2.8 (1.2-3.4); LYMPH % 48.9 % (22.0-35.0); MEAN CELL VOLUME 92.4 fl (80.0-105.0); MEAN CORPUSCULAR HGB CONC 32.5 g/dl (31.0-37.0); MEAN PLATELET VOLUME 10.1 fl (7.0-11.0); MONO # 0.6 (0.1-0.6); MONO % 9.7 % (1.0-6.0); RBC 3.8 10^6/uL (3.5-6.1); RED CELL DISTRIBUTION WIDTH 12.6 % (11.5-14.5); WHITE BLOOD COUNT 5.8 10^3/uL (4.5-11.0)
[2018-04-23 06:46] LABS: ALBUMIN 3.3 g/dL (3.0-4.8); ALT/SGPT 20 U/L (7-56); AST/SGOT 17 U/L (14-36); BLOOD UREA NITROGEN 14 mg/dL (7-21); CALCIUM 8.5 mg/dL (8.4-10.5); GFR NON-AFRICAN AMERICAN > 60
[2018-04-23] MEDS: Sodium Chloride 0.9% 1,000 ML IV SCH (09:23)
[2018-04-23] MEDS: Enoxaparin 40 mg Syringe SC SCH (09:37)
--- NOTE | 2018-04-23 10:14 | CP.PCM.PN ---
<Sheeba Ca - Last Filed: 04/23/18 15:38> Subjective - Date & Time of Evaluation Date of Evaluation: 04/23/18 Time of Evaluation: 15:33 - Subjective Subjective: Sheeba Ca, PGY-1 Medicine Progress Note for Dr. Eagle: Pt was seen and examined this AM at bedside. Pt states that she is still feeling lightheaded and dizzy when she lifts her head. She also states that she was able to tolerate her diet well without any associated n/v. Pt upon examination is able to now lift head and body up without any dizziness. Pt is going for MRI brain later today. At this time the pt has no acute complaints and she denies fevers, chills, palpitations, ringing in her ears, headache, numbness, tingling, chest pain, SOB, cough, abd pain, n/v, c/d, or dysuria. Objective - Vital Signs/Intake and Output Vital Signs (last 24 hours): Temp Pulse Resp BP Pulse Ox 97.9 F 50 L 20 99/56 L 96 04/23/18 08:27 04/23/18 08:27 04/23/18 08:27 04/23/18 08:27 04/23/18 08:27 Intake and Output: 04/23/18 04/23/18 06:59 18:59 Intake Total 0 420 Output Total 300 Balance 0 120 - Medications Medications: Current Medications Enoxaparin Sodium (Lovenox) 40 mg SC DAILY [facility]; Protocol Last Admin: 04/23/18 09:37 Dose: 40 mg Levothyroxine Sodium (Synthroid) 75 mcg PO 0600 [facility] Last Admin: 04/23/18 06:08 Dose: 75 mcg Pantoprazole Sodium (Protonix Ec Tab) 40 mg PO 0600 [facility] Last Admin: 04/23/18 06:08 Dose: 40 mg - Labs Labs: 04/23/18 05:00 04/23/18 05:00 PT 13.9 SECONDS (9.4-12.5) H 04/22/18 15:50 INR 1.25 04/22/18 15:50 APTT 35.3 Seconds (26.9-38.3) 04/22/18 15:50 - Constitutional Appears: Well, Non-toxic, No Acute Distress - Head Exam Head Exam: ATRAUMATIC, NORMAL INSPECTION, NORMOCEPHALIC - Eye Exam Eye Exam: EOMI, Normal appearance, PERRL. absent: Nystagmus - Respiratory Exam Respiratory Exam: Clear to Ausculation Bilateral, NORMAL BREATHING PATTERN. absent: Accessory Muscle Use, Rhonchi, Wheezes, Respiratory Distress, Stridor - Cardiovascular Exam Cardiovascular Exam: RRR, +S1, +S2. absent: Gallop, Rubs - GI/Abdominal Exam GI & Abdominal Exam: Soft, Normal Bowel Sounds. absent: Firm, Guarding, Rigid, Tenderness - Extremities Exam Extremities Exam: Normal Inspection. absent: Calf Tenderness, Pedal Edema - Back Exam Back Exam: NORMAL INSPECTION. absent: CVA tenderness (L), CVA tenderness (R) - Neurological Exam Neurological Exam: Alert, Awake, Oriented x3 - Psychiatric Exam Psychiatric exam: Flat Affect - Skin Skin Exam: Dry, Intact, Normal Color, Warm Assessment and Plan - Assessment and Plan (Free Text) Assessment: Pt is a 42 yo F with pmhx of DVT, clots, MS, HTN, GERD and hypothyroidism who presents a period of dizziness and nausea which started at [address] head done which showed: There are small ill-defined areas of low attenuation within the the bilateral posterior frontoparietal white matter as above. Findings could conceivably represent artifact though underlying nonspecific gliosis from several possibility etiologies mentioned above to be excluded. Follow-up MRI of the brain is therefore recommended. The sella turcica is expanded and somewhat undercut containing CSF. Findings consistent with empty sella however concomitant arachnoid cyst may be present. MRI brain for tomorrow is ordered for f/u. MRI done, pending official read. Plan: 1) Vertigo: - Pt states that she is still feeling dizziness at this time, but is able to sit up with out dizziness or nystagmus at this time. - Fall precaution - Seizure precaution - Neuro checks q4 - MRI Brain done - Pending official read. - Neuro consult - PT consulted - UA - Only + for blood, pt states is on period. - Utox - Only positive for Benzos, but pt takes prescribed ativan at home 2) Hypothyroid: - Tsh - .26 (low) - Free T4 wnl - Cont home synthroid 3) Hx of HTN: - currently not on medication - Cont to monitor 4) Hx of constipation: - Start home colace 100 BID PPx: DVT: Lovenox 40 GI: Protonix Case seen and discussed with Dr. Shagufta Ca, PGY-1 <Liam Eagle - Last Filed: 04/24/18 15:00> Objective - Vital Signs/Intake and Output Vital Signs (last 24 hours): Temp Pulse Resp BP Pulse Ox 97.9 F 49 L 16 87/50 L 94 L 04/24/18 07:41 04/24/18 07:41 04/24/18 07:41 04/24/18 07:41 04/24/18 07:41 Intake and Output: 04/24/18 04/24/18 06:59 18:59 Intake Total 480 Balance 480 - Medications Medications: Current Medications Benzocaine (Orajel Pm Maximum Strength) 0 gm MT QID PRN PRN Reason: TOOTHACHE Last Admin: 04/24/18 01:15 Dose: 1 applic Docusate Sodium (Colace) 100 mg PO Q12H PRN PRN Reason: Constipation Enoxaparin Sodium (Lovenox) 40 mg SC DAILY [facility]; Protocol Last Admin: 04/24/18 10:22 Dose: 40 mg Fludrocortisone Acetate (Florinef) 0.1 mg PO DAILY [facility] Ibuprofen (Motrin Tab) 200 mg PO Q6H PRN PRN Reason: Pain, moderate (4-7) Last Admin: 04/23/18 20:55 Dose: 200 mg Ketorolac Tromethamine (Toradol) 15 mg IVP Q6 PRN PRN Reason: Pain, severe (8-10) Levothyroxine Sodium (Synthroid) 75 mcg PO 0600 [facility] Last Admin: 04/24/18 05:30 Dose: 75 mcg Pantoprazole Sodium (Protonix Ec Tab) 40 mg PO 0600 [facility] Last Admin: 04/24/18 05:30 Dose: 40 mg - Labs Labs: 04/24/18 05:00 04/24/18 05:00 PT 13.9 SECONDS (9.4-12.5) H 04/22/18 15:50 INR 1.25 04/22/18 15:50 APTT 35.3 Seconds (26.9-38.3) 04/22/18 15:50 Attending/Attestation - Attestation I have personally seen and examined this patient.: Yes I have fully participated in the care of the patient.: Yes I have reviewed all pertinent clinical information, including history, physical exam and plan: Yes Notes (Text): 04/24/18 14:58 Patient was seen and exaimned with medical economics consultant. 42 Yrs old Female with PMH of Pituitary tumor ?,hypothyroidism, and anxiety who presents a period of dizziness and nausea , Patient does not has any focal deficit.Patient blood pressure is low,Patient is c/o severe dizziness with sitting and refusing to ambulate due to symptoms. We will check patient cortisol level. We will continue IV hydration. Patient does not has any H/O Multiple sclerosis. MRI of Brain is pending. We will get Physical therapy evaluation
--- NOTE | 2018-04-23 11:40 | CP.PCM.CON ---
History of Present Illness - History of Present Illness History of Present Illness: Neurology consult dictated. Chart and imaging reviewed. Plan: 1. MRi Brain official report 2. If normal, can discharge home with follow up with neurology clinic. 3. Medical management. Thank you Dr. Gallagher Neurology Past Patient History - Infectious Disease Hx of Infectious Diseases: None - Tetanus Immunizations Tetanus Immunization: Unknown - Past Medical History & Family History Past Medical History?: Yes - Past Social History Smoking Status: Light Smoker < 10 Cigarettes Daily - PULMONARY Hx Asthma: Yes Hx Pulmonary Embolism: Yes (2014) Hx Sleep Apnea: Yes (C PAP 12) - NEUROLOGICAL Hx Migraine: Yes Hx Multiple Sclerosis: Yes Other/Comment: brain tumor for 13 years - HEENT Hx HEENT Problems: Yes (BLURRY VISION SOMETIMES) - RENAL Hx Chronic Kidney Disease: No - ENDOCRINE/METABOLIC Hx Hypothyroidism: Yes - HEMATOLOGICAL/ONCOLOGICAL Hx Anemia: Yes - INTEGUMENTARY Hx Dermatological Problems: Yes Hx Eczema: Yes (BACK LEGS) - MUSCULOSKELETAL/RHEUMATOLOGICAL Hx Rheumatoid Arthritis: Yes - GASTROINTESTINAL Hx Gastritis: Yes - PSYCHIATRIC Hx Anxiety: Yes Hx Panic Symptoms: Yes Hx Substance Use: No - SURGICAL HISTORY Other/Comment: FILTER PLACEMENT, VARIOUS CYST REMOVAL - ANESTHESIA Hx Anesthesia: Yes Hx Anesthesia Reactions: No Hx Malignant Hyperthermia: No Meds Allergies/Adverse Reactions: Allergies Allergy/AdvReac Type Severity Reaction Status Date / Time acetaminophen [From Percocet] Allergy RASH Verified 03/31/17 15:13 codeine Allergy SHORTNESS Verified 03/31/17 15:13 OF BREATH oxycodone HCl [From Percocet] Allergy RASH Verified 03/31/17 15:13 Penicillins Allergy SHORTNESS Verified 03/31/17 15:13 OF BREATH ranitidine HCl [From Zantac] Allergy ANAPHYLAXIS Verified 03/31/17 15:13 apple AdvReac RASH Verified 03/31/17 15:13 pistachios Allergy SHORTNESS Uncoded 03/31/17 15:13 OF BREATH - Medications Medications: Current Medications Enoxaparin Sodium (Lovenox) 40 mg SC DAILY [facility]; Protocol Last Admin: 04/23/18 09:37 Dose: 40 mg Levothyroxine Sodium (Synthroid) 75 mcg PO 0600 [facility] Last Admin: 04/23/18 06:08 Dose: 75 mcg Pantoprazole Sodium (Protonix Ec Tab) 40 mg PO 0600 [facility] Last Admin: 04/23/18 06:08 Dose: 40 mg Results - Vital Signs Recent Vital Signs: Last Vital Signs Temp 97.9 F 04/23/18 08:27 Pulse 50 L 04/23/18 08:27 Resp 20 04/23/18 08:27 BP 99/56 L 04/23/18 08:27 Pulse Ox 96 04/23/18 08:27 - Labs Result Diagrams: 04/23/18 05:00 04/23/18 05:00 Labs: Laboratory Results - last 24 hr 04/22/18 04/22/18 04/22/18 15:50 15:50 15:50 WBC 7.1 RBC 4.30 Hgb 13.4 Hct 39.8 MCV 92.6 MCH 31.2 MCHC 33.7 RDW 12.6 Plt Count 225 MPV 9.9 Neut % (Auto) 61.3 Lymph % (Auto) 28.7 Waldo % (Auto) 8.1 H Eos % (Auto) 1.6 Baso % (Auto) 0.3 Lymph # (Auto) 1.9 Waldo # (Auto) 0.5 Eos # (Auto) 0.1 Baso # (Auto) 0.02 Absolute Neuts (auto) 4.10 PT 13.9 H INR 1.25 APTT 35.3 Sodium 137 Potassium 3.8 Chloride 108 H Carbon Dioxide 25 Anion Gap 7 L BUN 13 Creatinine 0.7 Est GFR ( Amer) > 60 Est GFR (Non-Af Amer) > 60 Random Glucose 76 Calcium 8.7 Total Bilirubin 0.5 AST 17 ALT 19 Alkaline Phosphatase 50 Total Protein 7.6 Albumin 3.8 Globulin 3.8 Albumin/Globulin Ratio 1.0 L Free T4 TSH 3rd Generation Urine Color Urine Appearance Urine pH Ur Specific [place] Urine Protein Urine Glucose (UA) Urine Ketones Urine Blood Urine Nitrate Urine Bilirubin Urine Urobilinogen Ur Leukocyte Esterase Urine RBC Urine WBC Ur Epithelial Cells Urine Opiates Screen Urine Methadone Screen Ur Barbiturates Screen Ur Phencyclidine Scrn Ur Amphetamines Screen U Benzodiazepines Scrn U Oth Cocaine Metabols U Cannabinoids Screen 04/22/18 04/22/18 04/22/18 18:53 18:53 20:06 WBC RBC Hgb Hct MCV MCH MCHC RDW Plt Count MPV Neut % (Auto) Lymph % (Auto) Waldo % (Auto) Eos % (Auto) Baso % (Auto) Lymph # (Auto) Waldo # (Auto) Eos # (Auto) Baso # (Auto) Absolute Neuts (auto) PT INR APTT Sodium Potassium Chloride Carbon Dioxide Anion Gap BUN Creatinine Est GFR ( Amer) Est GFR (Non-Af Amer) Random Glucose Calcium Total Bilirubin AST ALT Alkaline Phosphatase Total Protein Albumin Globulin Albumin/Globulin Ratio Free T4 0.86 TSH 3rd Generation 0.26 L Urine Color Yellow Urine Appearance Slight-cloudy Urine pH 6.5 Ur Specific [place] 1.020 Urine Protein Negative Urine Glucose (UA) Negative Urine Ketones Negative Urine Blood Trace-intact H Urine Nitrate Negative Urine Bilirubin Negative Urine Urobilinogen 0.2 Ur Leukocyte Esterase Negative Urine RBC 5 - 10 H Urine WBC 2 - 5 Ur Epithelial Cells 6 - 8 H Urine Opiates Screen Negative Urine Methadone Screen Negative Ur Barbiturates Screen Negative Ur Phencyclidine Scrn Negative Ur Amphetamines Screen Negative U Benzodiazepines Scrn Positive H U Oth Cocaine Metabols Negative U Cannabinoids Screen Negative 04/23/18 04/23/18 05:00 05:00 WBC 5.8 RBC 3.80 Hgb 11.4 L D Hct 35.1 L MCV 92.4 MCH 30.0 MCHC 32.5 RDW 12.6 Plt Count 227 MPV 10.1 Neut % (Auto) 38.7 L Lymph % (Auto) 48.9 H Waldo % (Auto) 9.7 H Eos % (Auto) 2.4 Baso % (Auto) 0.3 Lymph # (Auto) 2.8 Waldo # (Auto) 0.6 Eos # (Auto) 0.1 Baso # (Auto) 0.02 Absolute Neuts (auto) 2.24 PT INR APTT Sodium 138 Potassium 4.3 Chloride 111 H Carbon Dioxide 25 Anion Gap 6 L BUN 14 Creatinine 0.8 Est GFR ( Amer) > 60 Est GFR (Non-Af Amer) > 60 Random Glucose 83 Calcium 8.5 Total Bilirubin 0.3 AST 17 ALT 20 Alkaline Phosphatase 48 Total Protein 6.8 Albumin 3.3 Globulin 3.5 Albumin/Globulin Ratio 1.0 L Free T4 TSH 3rd Generation Urine Color Urine Appearance Urine pH Ur Specific [place] Urine Protein Urine Glucose (UA) Urine Ketones Urine Blood Urine Nitrate Urine Bilirubin Urine Urobilinogen Ur Leukocyte Esterase Urine RBC Urine WBC Ur Epithelial Cells Urine Opiates Screen Urine Methadone Screen Ur Barbiturates Screen Ur Phencyclidine Scrn Ur Amphetamines Screen U Benzodiazepines Scrn U Oth Cocaine Metabols U Cannabinoids Screen
[2018-04-24] MEDS ORDERED: Benzocaine 20% Cream(7 gm) MT PRN (00:50)
--- NOTE | 2018-04-24 00:57 | CP.PCM.PN ---
Subjective - Date & Time of Evaluation Date of Evaluation: 04/24/18 Time of Evaluation: 00:55 - Subjective Subjective: S: tooth ache 42 yo F with pmhx of DVT, clots, MS, HTN, GERD and hypothyroidism who presents a period of dizziness and nausea which started at [address] head done which showed: There are small ill-defined areas of low attenuation within the the bilateral posterior frontoparietal white matter as above. Findings could conceivably represent artifact though underlying nonspecific gliosis from several possibility etiologies mentioned above to be excluded. The sella turcica is expanded and somewhat undercut containing CSF. Findings consistent with empty sella however concomitant arachnoid cyst may be present. MRI brain f or tomorrow is ordered for f/u. MRI done, pending official read. O: 111/65 96% 56H RR18 HEENT: no larungeal erythema, no exudate. R lower jaw, molar cavity, no abscess/draining/ulcer A: tooth ache anxiety on home xanax 2tid no abscess in CT head P; xanax 1mg x 1 for anxiety and prevent withdrawal orogel Objective - Vital Signs/Intake and Output Vital Signs (last 24 hours): Temp Pulse Resp BP Pulse Ox 98.6 F 56 L 18 111/65 96 04/24/18 00:13 04/24/18 00:13 04/24/18 00:13 04/24/18 00:13 04/24/18 00:13 Intake and Output: 04/23/18 04/24/18 18:59 06:59 Intake Total 420 Output Total 300 Balance 120 - Medications Medications: Current Medications Benzocaine (Orajel Pm Maximum Strength) 0 gm MT QID PRN PRN Reason: TOOTHACHE Docusate Sodium (Colace) 100 mg PO Q12H PRN PRN Reason: Constipation Enoxaparin Sodium (Lovenox) 40 mg SC DAILY [facility]; Protocol Last Admin: 04/23/18 09:37 Dose: 40 mg Ibuprofen (Motrin Tab) 200 mg PO Q6H PRN PRN Reason: Pain, moderate (4-7) Last Admin: 04/23/18 20:55 Dose: 200 mg Levothyroxine Sodium (Synthroid) 75 mcg PO 0600 [facility] Last Admin: 04/23/18 06:08 Dose: 75 mcg Pantoprazole Sodium (Protonix Ec Tab) 40 mg PO 0600 [facility] Last Admin: 04/23/18 06:08 Dose: 40 mg - Labs Labs: 04/23/18 05:00 04/23/18 05:00 PT 13.9 SECONDS (9.4-12.5) H 04/22/18 15:50 INR 1.25 04/22/18 15:50 APTT 35.3 Seconds (26.9-38.3) 04/22/18 15:50
[2018-04-24] MEDS: Pantoprazole 40 mg EC Tab PO SCH (05:30)
[2018-04-24] MEDS: Levothyroxine 75 MCG TAB PO SCH (05:30)
[2018-04-24 06:24] LABS: BASO # 0.01 K/mm3 (0.0-2.0); BASO % 0.2 % (0.0-3.0); EOS # 0.2 (0.0-0.7); EOS % 2.9 % (1.5-5.0); LYMPH % 54.5 % (22.0-35.0); MEAN CELL VOLUME 92.8 fl (80.0-105.0); MEAN CORPUSCULAR HEMOGLOBIN 30.6 pg (25.0-35.0); MEAN PLATELET VOLUME 9.6 fl (7.0-11.0); MONO # 0.5 (0.1-0.6); MONO % 8.2 % (1.0-6.0); RBC 3.59 10^6/uL (3.5-6.1); RED CELL DISTRIBUTION WIDTH 12.5 % (11.5-14.5); WHITE BLOOD COUNT 5.5 10^3/uL (4.5-11.0)
[2018-04-24 06:41] LABS: ALBUMIN 3.3 g/dL (3.0-4.8); ALT/SGPT 24 U/L (7-56); AST/SGOT 14 U/L (14-36); BLOOD UREA NITROGEN 13 mg/dL (7-21); CALCIUM 8.6 mg/dL (8.4-10.5); GFR NON-AFRICAN AMERICAN > 60
[2018-04-24] MEDS ORDERED: Sodium Chloride 0.9% 1,000 ML IV STA (06:50)
--- NOTE | 2018-04-24 07:13 | CP.PCM.PN ---
Subjective - Date & Time of Evaluation Date of Evaluation: 04/24/18 Time of Evaluation: 07:11 - Subjective Subjective: PGY1 Note for House Doc S: -Paged about low blood pressure O: - BP noted to be 87/50 (previous 111/65) - Patient is asymptomatic. A/P - Will observe. Repeat blood pressure. No bolus at this time. Objective - Vital Signs/Intake and Output Vital Signs (last 24 hours): Temp Pulse Resp BP Pulse Ox 98.6 F 49 L 18 87/50 L 96 04/24/18 00:13 04/24/18 06:00 04/24/18 00:13 04/24/18 06:00 04/24/18 00:13 Intake and Output: 04/24/18 04/24/18 06:59 18:59 Intake Total 480 Balance 480 - Medications Medications: Current Medications Benzocaine (Orajel Pm Maximum Strength) 0 gm MT QID PRN PRN Reason: TOOTHACHE Last Admin: 04/24/18 01:15 Dose: 1 applic Docusate Sodium (Colace) 100 mg PO Q12H PRN PRN Reason: Constipation Enoxaparin Sodium (Lovenox) 40 mg SC DAILY [facility]; Protocol Last Admin: 04/23/18 09:37 Dose: 40 mg Sodium Chloride (Sodium Chloride 0.9%) 1,000 mls @ 999 mls/hr IV .Q1H1M STA Stop: 04/24/18 07:50 Ibuprofen (Motrin Tab) 200 mg PO Q6H PRN PRN Reason: Pain, moderate (4-7) Last Admin: 04/23/18 20:55 Dose: 200 mg Levothyroxine Sodium (Synthroid) 75 mcg PO 0600 [facility] Last Admin: 04/24/18 05:30 Dose: 75 mcg Pantoprazole Sodium (Protonix Ec Tab) 40 mg PO 0600 [facility] Last Admin: 04/24/18 05:30 Dose: 40 mg - Labs Labs: 04/24/18 05:00 04/24/18 05:00 PT 13.9 SECONDS (9.4-12.5) H 04/22/18 15:50 INR 1.25 04/22/18 15:50 APTT 35.3 Seconds (26.9-38.3) 04/22/18 15:50
[2018-04-24] MEDS: Enoxaparin 40 mg Syringe SC SCH (10:22)
--- NOTE | 2018-04-24 11:50 | CP.PCM.PN ---
Subjective - Date & Time of Evaluation Date of Evaluation: 04/24/18 Time of Evaluation: 11:49 - Subjective Subjective: Sheeba Ca, PGY-1 Medicine Progress Note for Dr. Eagle: Pt was seen and examined this AM at bedside. Pt states that she is still feeling lightheaded and dizzy particularly on the R side. Pt states that she has been having tooth pain which then starts to feel like ear pain and then she notices the dizziness. Pt states that the orajel that was given provided minimal relief. Pt upon examination is able to now lift head and body up without any dizziness or nystagmus. At this time the pt has no acute complaints and she denies fevers, chills, palpitations, ringing in her ears, headache, numbness, tingling, chest pain, SOB, cough, abd pain, n/v, c/d, or dysuria. Objective - Vital Signs/Intake and Output Vital Signs (last 24 hours): Temp Pulse Resp BP Pulse Ox 97.9 F 49 L 16 87/50 L 94 L 04/24/18 07:41 04/24/18 07:41 04/24/18 07:41 04/24/18 07:41 04/24/18 07:41 Intake and Output: 04/24/18 04/24/18 06:59 18:59 Intake Total 480 Balance 480 - Medications Medications: Current Medications Benzocaine (Orajel Pm Maximum Strength) 0 gm MT QID PRN PRN Reason: TOOTHACHE Last Admin: 04/24/18 01:15 Dose: 1 applic Docusate Sodium (Colace) 100 mg PO Q12H PRN PRN Reason: Constipation Enoxaparin Sodium (Lovenox) 40 mg SC DAILY [facility]; Protocol Last Admin: 04/24/18 10:22 Dose: 40 mg Fludrocortisone Acetate (Florinef) 0.1 mg PO DAILY [facility] Ibuprofen (Motrin Tab) 200 mg PO Q6H PRN PRN Reason: Pain, moderate (4-7) Last Admin: 04/23/18 20:55 Dose: 200 mg Ketorolac Tromethamine (Toradol) 15 mg IVP Q6 PRN PRN Reason: Pain, severe (8-10) Levothyroxine Sodium (Synthroid) 75 mcg PO 0600 [facility] Last Admin: 04/24/18 05:30 Dose: 75 mcg Pantoprazole Sodium (Protonix Ec Tab) 40 mg PO 0600 [facility] Last Admin: 04/24/18 05:30 Dose: 40 mg - Labs Labs: 04/24/18 05:00 04/24/18 05:00 PT 13.9 SECONDS (9.4-12.5) H 04/22/18 15:50 INR 1.25 04/22/18 15:50 APTT 35.3 Seconds (26.9-38.3) 04/22/18 15:50 - Constitutional Appears: Non-toxic, No Acute Distress - Head Exam Head Exam: ATRAUMATIC, NORMAL INSPECTION, NORMOCEPHALIC - Eye Exam Eye Exam: EOMI, Normal appearance, PERRL. absent: Nystagmus, Periorbital swelling, Scleral icterus - ENT Exam ENT Exam: Mucous Membranes Moist Additional comments: Pt is noted to have multiple teeth with dental carries in the lower R posterior jaw. No abscess or drainage noted on exam - Respiratory Exam Respiratory Exam: Clear to Ausculation Bilateral, NORMAL BREATHING PATTERN. absent: Accessory Muscle Use, Decreased Breath Sounds, Rhonchi, Wheezes, Respiratory Distress, Stridor - Cardiovascular Exam Cardiovascular Exam: RRR, +S1, +S2. absent: Gallop, Rubs - GI/Abdominal Exam GI & Abdominal Exam: Soft, Normal Bowel Sounds. absent: Firm, Guarding, Rigid, Tenderness - Extremities Exam Extremities Exam: Normal Inspection. absent: Calf Tenderness, Pedal Edema - Back Exam Back Exam: NORMAL INSPECTION. absent: CVA tenderness (L), CVA tenderness (R) - Neurological Exam Neurological Exam: Alert, Awake, Oriented x3 - Psychiatric Exam Psychiatric exam: Flat Affect - Skin Skin Exam: Dry, Normal Color, Warm Assessment and Plan - Assessment and Plan (Free Text) Assessment: Pt is a 42 yo F with pmhx of DVT, clots, HTN, GERD and hypothyroidism who presents a period of dizziness and nausea which started at [address] head done which showed: There are small ill-defined areas of low attenuation within the the bilateral posterior frontoparietal white matter as above. Findings could conceivably represent artifact though underlying nonspecific gliosis from several possibility etiologies mentioned above to be excluded. Follow up MRI pending read. Pt noted to have low AM coritsol and hypotensive, given hx of pituitary tumor will assess level of other pituitary hormones. Plan: 1) Vertigo: - Pt states that she is still feeling dizziness at this time, but is able to sit up with out dizziness or nystagmus at this time. - Fall precaution - Seizure precaution - Neuro checks q4 - MRI Brain done - Pending official read. - Neuro consult - PT consulted - UA - Only + for blood, pt states is on period. - Utox - Only positive for Benzos, but pt takes prescribed ativan at home 2) Hypocoritsolism suspicious for Addisons disease: - Likely 2/2 hx of pituitary tumor - Pt noted to be hypotensive - AM cortisol noted to be low - ACTH levels pending - Flourinef .1 TID - Endocrinology consult - f/u prolactin, FSH, Growth hormone levels 3) Hypothyroidism: - Likely 2/2 hx of pituitary tumor - Tsh - .26 (low) - Free T4 wnl - Cont home synthroid 4) Hx of HTN: - currently not on medication - Cont to monitor 5) Hx of constipation: - Start home colace 100 BID PPx: DVT: Lovenox 40 GI: Protonix Case seen and discussed with Dr. Shagufta Ca, PGY-1
--- NOTE | 2018-04-24 13:37 | MRI ---
Date of service: 04/22/2018 PROCEDURE: MRI BRAIN WITHOUT CONTRAST HISTORY: Vertigo COMPARISON: Comparison is made to the previous CT dated 04/22/2018 TECHNIQUE: Multiplanar, multisequence MR images of the brain were obtained without intravenous contrast enhancement. FINDINGS: HEMORRHAGE: None DWI: No evidence of an acute or early subacute infarction. BRAIN PARENCHYMA: No mass effect or edema. Small foci of hyperintense T2 FLAIR signal noted in the white matter may represent mild chronic microvascular ischemic disease. VENTRICLES: Unremarkable. No hydrocephalus. CRANIUM: Unremarkable. ORBITS: Grossly unremarkable. PARANASAL SINUSES/MASTOIDS: There is a [id number] mucosal thickening noted in the left frontal sinus. VASCULAR SYSTEM: Skull base flow voids intact. OTHER FINDINGS: Incidentally noted is dilated sella turcica and partial empty sella. Also incidentally noted is 1.5 centimeter hyperintense T2 signal cystic lesion to the left aspect of the nasopharynx at the level of C1 of uncertain etiology. IMPRESSION: No evidence of acute infarct or acute intracranial hemorrhage. No evidence of mass lesion mass effect or midline shift. Dilated sella turcica and partial empty sella. Correlate clinically for possible benign/hydro pathic intracranial hypertension. [id number] left frontal sinus mucosal thickening. 1.5 centimeter hyperintense T2 cystic lesion noted to the left aspect of the nasopharynx at the level of C1 of uncertain etiology.
--- NOTE | 2018-04-24 16:06 | CON ---
DATE OF CONSULTATION: 04/24/2018 HISTORY OF PRESENT ILLNESS: In short, the patient is a 42-year-old female with multiple medical issues including a history of blood, DVT, multiple sclerosis, hypertension, and hypothyroidism. The patient was admitted on the medical side for evaluation of dizziness and nausea. Psych consult was called because the patient presented with flat affect and the patient has history of depression. The patient was seen and examined. The patient presented to be alert. The patient reported that her dizziness may be related to the fact that she has tooth infection and ear infection. The patient reported that she has a history of being seen by psychiatrist in the past about a year ago. She reported that at present moment she is not on any medications and denied having any major depressive disorder symptoms. The patient reported that at times her mood is low, but adamantly denied thoughts of harming herself or others. The patient denied feeling anxious. The patient reported fair appetite and sleep. Denied any psychotic symptoms. The patient has a history of being admitted to the psychiatric inpatient unit. The patient also denied history of suicidal attempts. VITAL SIGNS: Reviewed. Temperature is 97.9, pulse is 49, blood pressure 87/50, respirations 16, oxygen saturation is 94. MEDICATIONS: Reviewed. The patient is on , Colace, Lovenox, Florinef, Motrin, Toradol, Synthroid and Protonix. LABS: Reviewed. Most recent was from today. Hemoglobin and hematocrit low. Urinalysis showed blood trace. Toxicology was positive for benzodiazepines. Collateral information was obtained from a medical claims processor. The patient does not appear to be agitated or psychotic. The main concern was the patient lost her son about a year ago. As per nursing report, the patient is calm, cooperative, no behavioral disturbances. MENTAL STATUS EXAM: The patient appears to be alert, oriented, pleasant, cooperative. Fair eye contact. Speech was underproductive. She has no answers. Thought process seems to be concrete. Thought content, the patient denied visual, auditory, or tactile hallucinations. Denied paranoid ideation. The patient denied thoughts of harming herself or others. Denied intents or plan. Insight and judgment seems to be fair. Impulses are well controlled. In regard to mood symptoms, the patient denied any feeling of hopelessness or helplessness. The patient adamantly denied thoughts of harming herself or others. In regard to the loss of her child, the patient did not want to discuss it and did not bring that to this leader writer's attention. The patient did not want to follow up with outpatient psychiatrist. DIAGNOSIS: Mood disorder due to general medical condition where grief cannot be excluded. PLAN: Continue current management. Continue current medication. The patient does not want to be followed up with psychiatrist in the community. Did not present to be psychotic, did not present to be depressed. Adamantly denied thoughts of harming herself or others. The patient was in no imminent danger to self or others. This leader writer will sign off. Should you have any questions, give me a call back Iona Corey MD
[2018-04-24 16:59] LABS: FSH 3.7 mIU/mL; PROLACTIN 18.2 ng/mL (3.0-18.9)
[2018-04-25] MEDS: Pantoprazole 40 mg EC Tab PO SCH (06:30)
[2018-04-25] MEDS: Levothyroxine 75 MCG TAB PO SCH (06:30)
[2018-04-25 06:46] LABS: BASO # 0.01 K/mm3 (0.0-2.0); BASO % 0.2 % (0.0-3.0); EOS # 0.1 (0.0-0.7); EOS % 1.9 % (1.5-5.0); HEMOGLOBIN 10.5 g/dL (12.0-16.0); LYMPH # 2.9 (1.2-3.4); LYMPH % 53.4 % (22.0-35.0); MEAN CORPUSCULAR HEMOGLOBIN 30.7 pg (25.0-35.0); MONO # 0.4 (0.1-0.6); MONO % 8.2 % (1.0-6.0); RBC 3.42 10^6/uL (3.5-6.1); RED CELL DISTRIBUTION WIDTH 12.6 % (11.5-14.5); WHITE BLOOD COUNT 5.4 10^3/uL (4.5-11.0)
[2018-04-25 07:01] LABS: ALBUMIN 3.1 g/dL (3.0-4.8); ALT/SGPT 23 U/L (7-56); AST/SGOT 17 U/L (14-36); BLOOD UREA NITROGEN 19 mg/dL (7-21); CALCIUM 8.5 mg/dL (8.4-10.5); GFR NON-AFRICAN AMERICAN > 60
--- NOTE | 2018-04-25 08:46 | CON ---
DATE: 04/24/2018 ENDOCRINOLOGY CONSULT LOCATION: Room 366. HISTORY OF PRESENT ILLNESS: This is a 42-year-old female presenting here with sudden onset of dizziness, lightheadedness with generalized body weakness and is now being referred for evaluation for possible adrenal insufficiency with associated hypotension. PAST MEDICAL HISTORY: History of with pulmonary embolism in 2015, history of hypertension and dyslipidemia, history of previous lap-band surgery and reversal of the same as noted, history of hypothyroidism on levothyroxine given 75 mcg once daily as noted. FAMILY HISTORY: Possible hypertension and heart disease. SOCIAL HISTORY: The patient has a supportive family. No substance use. REVIEW OF SYSTEMS: Admits to generalized body weakness with sudden onset of severe dizziness and lightheadedness and a brief bout of unresponsiveness. No chest pains, palpitations or PND. Her oral intake has been variable with the patient with nausea and dyspepsia with habitual constipation. PHYSICAL EXAMINATION: GENERAL: This is an average built female in no apparent distress. VITAL SIGNS: Blood pressure of 100/70, pulse 100 beats per minute and regular, temperature 98, respirations 20, height is 5 feet , weight is 163 pounds. HEENT: Head is normocephalic. Eyes anicteric with pink conjunctivae. Fundoscopy not possible at this time. Ears, nose, and throat otherwise normal. NECK: Supple. Thyroid gland is normal size. No carotid bruits or cervical adenopathy. CARDIOPULMONARY: Some adynamic precordium. S1 and S2 is rapid and regular. LUNGS: Clear to auscultation. ABDOMEN: Flat and soft with positive bowel sounds. EXTREMITIES: No . Kat Briggs MD
[2018-04-25] MEDS: Enoxaparin 40 mg Syringe SC SCH (09:11)
--- NOTE | 2018-04-25 15:26 | CP.PCM.PN ---
<Rosalva Murray - Last Filed: 04/25/18 15:41> Subjective - Date & Time of Evaluation Date of Evaluation: 04/25/18 Time of Evaluation: 09:00 - Subjective Subjective: PGY-3 Neurology progress note for Dr. Gallagher's service Patient seen and examined at bedside. No acute distress, patient is resting comfortably. Patient has no complaints at this time. Objective - Vital Signs/Intake and Output Vital Signs (last 24 hours): Temp Pulse Resp BP Pulse Ox 98 F 50 L 18 92/56 L 97 04/25/18 08:36 04/25/18 08:36 04/25/18 08:36 04/25/18 08:36 04/25/18 08:36 Intake and Output: 04/25/18 04/25/18 06:59 18:59 Intake Total 240 Output Total 400 Balance -160 - Medications Medications: Current Medications Benzocaine (Orajel Pm Maximum Strength) 0 gm MT QID PRN PRN Reason: TOOTHACHE Last Admin: 04/24/18 01:15 Dose: 1 applic Docusate Sodium (Colace) 100 mg PO Q12H PRN PRN Reason: Constipation Enoxaparin Sodium (Lovenox) 40 mg SC DAILY [facility]; Protocol Last Admin: 04/25/18 09:11 Dose: 40 mg Fludrocortisone Acetate (Florinef) 0.1 mg PO DAILY [facility] Last Admin: 04/25/18 09:10 Dose: 0.1 mg Ibuprofen (Motrin Tab) 200 mg PO Q6H PRN PRN Reason: Pain, moderate (4-7) Last Admin: 04/23/18 20:55 Dose: 200 mg Ketorolac Tromethamine (Toradol) 15 mg IVP Q6 PRN PRN Reason: Pain, severe (8-10) Last Admin: 04/25/18 08:13 Dose: 15 mg Levothyroxine Sodium (Synthroid) 75 mcg PO 0600 [facility] Last Admin: 04/25/18 06:30 Dose: 75 mcg Pantoprazole Sodium (Protonix Ec Tab) 40 mg PO 0600 [facility] Last Admin: 04/25/18 06:30 Dose: 40 mg - Labs Labs: 04/25/18 06:00 04/25/18 06:00 PT 13.9 SECONDS (9.4-12.5) H 04/22/18 15:50 INR 1.25 04/22/18 15:50 APTT 35.3 Seconds (26.9-38.3) 04/22/18 15:50 - Additional Findings Additional findings: - Constitutional Appears: Non-toxic, No Acute Distress - Head Exam Head Exam: ATRAUMATIC, NORMAL INSPECTION, NORMOCEPHALIC - Eye Exam Eye Exam: EOMI, Normal appearance, PERRL, normal accommodation. absent: Nystagmus, Periorbital swelling, Scleral icterus - ENT Exam ENT Exam: Mucous Membranes Moist Additional comments: Pt is noted to have multiple dental carries - Respiratory Exam Respiratory Exam: NORMAL BREATHING PATTERN. absent: Accessory Muscle Use, Decreased Breath Sounds, Rhonchi, Wheezes, Respiratory Distress, Stridor - Cardiovascular Exam Cardiovascular Exam: RRR, +S1, +S2. absent: Gallop, Rubs - GI/Abdominal Exam GI & Abdominal Exam: Soft, Normal Bowel Sounds. absent: Firm, Guarding, Rigid, Tenderness - Extremities Exam Extremities Exam: Normal Inspection. absent: Calf Tenderness, Pedal Edema - Back Exam Back Exam: NORMAL INSPECTION. absent: CVA tenderness (L), CVA tenderness (R) - Neurological Exam Neurological Exam: Alert, Awake, Oriented x3, no focal deficits, neurologically intact - Psychiatric Exam Psychiatric exam: Flat Affect - Skin Skin Exam: Dry, Normal Color, Warm Assessment and Plan - Assessment and Plan (Free Text) Assessment: 42 yo F with pmh of DVT, clots, HTN, GERD and hypothyroidism who presented for period of dizziness and nausea. 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 -Patient is to follow up with neurosurgary in 3-4 months - Patient can be discharge home with follow up with neurology clinic. - further recommendations bu Dr. Gallagher Case discussed with Dr. Gallagher <Jerson Gallagher - Last Filed: 04/25/18 23:40> Objective - Vital Signs/Intake and Output Vital Signs (last 24 hours): Temp Pulse Resp BP Pulse Ox 98.5 F 56 L 19 115/70 99 04/25/18 16:20 04/25/18 16:20 04/25/18 16:20 04/25/18 16:20 04/25/18 16:20 - Labs Labs: 04/25/18 06:00 04/25/18 06:00 PT 13.9 SECONDS (9.4-12.5) H 04/22/18 15:50 INR 1.25 04/22/18 15:50 APTT 35.3 Seconds (26.9-38.3) 04/22/18 15:50 Assessment and Plan - Assessment and Plan (Free Text) Assessment: 42 yr old woman with dizziness that is most likely chronic vertigo, unrelated to partially empty sella. we will advise her to fup with neurosurgery outpatient. I examined the patient independently and with the resident and formulated the as sessment and plan. All medical record entries made by the Resident were at my direction and personally dictated by me. I have reviewed the chart and agree that the record accurately reflects my personal performance of the history, physical exam, medical decision making, and the department course for this patient. I have also personally directed, reviewed, and agree with the discharge instructions and disposition. Dr. Gallagher Neurology
[2018-04-25 16:21] VITALS: BP 115/70; PULSE 56; RESP 19; TEMP 98.5; O2SAT 99
--- NOTE | 2018-04-25 16:53 | PN ---
DATE: 04/25/2018 ENDO FOLLOWUP LOCATION: Room 366. SUBJECTIVE: This is a 42-year-old female admitted with severe bouts of dizziness and lightheadedness and is now being followed closely for metabolic management. She remains clinically and biochemically euadrenal at this time. 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 LABORATORY DATA: Her chemistry showed BUN of 19, sodium 138, potassium 4.0, chloride 112, CO2 of 24, glucose 91 and creatinine 0.9. Her cortisol level was low normal of 2.7 mcg/dL with a low albumin level also as noted. Her prolactin was 18.2 with TSH of 0.9. ASSESSMENT: This is a 42-year-old female with recent bouts of intractable dizziness and lightheadedness with near syncopal episodes and is now being referred to endocrine evaluation of a partial empty sella syndrome. , some patients can develop partial or full un-overt hypopituitarism as noted thereof. Most patients however remain optimal and normal in terms of hormonal profile as noted. PLAN OF MANAGEMENT: We will do a Cortrosyn stimulation test today as ordered and detail orders have been given. A basal cortisol will be done at 6 a.m. today followed by Cortrosyn given as 250 mcg IV push one dose at 7 a.m. as ordered. We will then do a random post-stimulatory or one-hour cortisol level at 8 a.m. as ordered. This will confirm the presence of underlying secondary hypoadrenalism or adrenal insufficiency thereof. A low albumin level lower the serum cortisol levels done randomly in the morning as ordered. We will obtain serial chemistries and supplement accordingly as needed. We will follow with you. Kat Briggs MD
--- NOTE | 2018-04-26 00:20 | CP.PCM.DIS ---
<Sheeba Ca - Last Filed: 04/26/18 20:48> Provider - Provider Date of Admission: 04/24/18 09:07 Attending physician: Sanjay Domingo MD Consults: 04/22/18 18:42 Neurology Consult Routine Comment: Consulting Provider: Jerson Gallagher Consulting Physician: Jerson Gallagher Reason for Consult: Vertigo 04/23/18 09:44 Psychiatry Consult Routine Comment: Consulting Provider: Iona Corey Consulting Physician: Iona Corey Reason for Consult: Depression 04/24/18 09:05 Endocrinology Consult Routine Comment: Consulting Provider: Kat Briggs Consulting Physician: Kat Briggs Reason for Consult: low am cortisol, hypotension, addisons? Time Spent in preparation of Discharge (in minutes): 45 Diagnosis - Discharge Diagnosis (1) Recurrent vertigo Status: Acute Hospital Course - Lab Results Lab Results: Most Recent Lab Values WBC 5.4 10^3/uL (4.5-11.0) 04/25/18 06:00 RBC 3.42 10^6/uL (3.5-6.1) L 04/25/18 06:00 Hgb 10.5 g/dL (12.0-16.0) L 04/25/18 06:00 Hct 31.8 % (36.0-48.0) L 04/25/18 06:00 MCV 93.0 fl (80.0-105.0) 04/25/18 06:00 MCH 30.7 pg (25.0-35.0) 04/25/18 06:00 MCHC 33.0 g/dl (31.0-37.0) 04/25/18 06:00 RDW 12.6 % (11.5-14.5) 04/25/18 06:00 Plt Count 194 10^3/uL (120.0-450.0) 04/25/18 06:00 MPV 10.0 fl (7.0-11.0) 04/25/18 06:00 Neut % (Auto) 36.3 % (50.0-68.0) L 04/25/18 06:00 Lymph % (Auto) 53.4 % (22.0-35.0) H 04/25/18 06:00 Emmet % (Auto) 8.2 % (1.0-6.0) H 04/25/18 06:00 Eos % (Auto) 1.9 % (1.5-5.0) 04/25/18 06:00 Baso % (Auto) 0.2 % (0.0-3.0) 04/25/18 06:00 Lymph # (Auto) 2.9 (1.2-3.4) 04/25/18 06:00 Emmet # (Auto) 0.4 (0.1-0.6) 04/25/18 06:00 Eos # (Auto) 0.1 (0.0-0.7) 04/25/18 06:00 Baso # (Auto) 0.01 K/mm3 (0.0-2.0) 04/25/18 06:00 Absolute Neuts (auto) 1.96 (1.4-6.5) 04/25/18 06:00 PT 13.9 SECONDS (9.4-12.5) H 04/22/18 15:50 INR 1.25 04/22/18 15:50 APTT 35.3 Seconds (26.9-38.3) 04/22/18 15:50 Sodium 138 mmol/L (132-148) 04/25/18 06:00 Potassium 4.0 mmol/L (3.6-5.0) 04/25/18 06:00 Chloride 112 mmol/L (98-107) H 04/25/18 06:00 Carbon Dioxide 24 mmol/L (21-33) 04/25/18 06:00 Anion Gap 6 (10-20) L 04/25/18 06:00 BUN 19 mg/dL (7-21) 04/25/18 06:00 Creatinine 0.9 mg/dl (0.7-1.2) 04/25/18 06:00 Est GFR ( Amer) > 60 04/25/18 06:00 Est GFR (Non-Af Amer) > 60 04/25/18 06:00 POC Glucose (mg/dL) 95 mg/dL (65-110) 04/24/18 16:12 Random Glucose 91 mg/dL (70-110) 04/25/18 06:00 Calcium 8.5 mg/dL (8.4-10.5) 04/25/18 06:00 Total Bilirubin 0.3 mg/dL (0.2-1.3) 04/25/18 06:00 AST 17 U/L (14-36) 04/25/18 06:00 ALT 23 U/L (7-56) 04/25/18 06:00 Alkaline Phosphatase 48 U/L (38-126) 04/25/18 06:00 Total Protein 6.3 g/dL (5.8-8.3) 04/25/18 06:00 Albumin 3.1 g/dL (3.0-4.8) 04/25/18 06:00 Globulin 3.2 gm/dL 04/25/18 06:00 Albumin/Globulin Ratio 1.0 (1.1-1.8) L 04/25/18 06:00 Free T4 0.86 ng/dL (0.78-2.19) 04/22/18 20:06 TSH 3rd Generation 0.90 mIU/mL (0.46-4.68) 04/24/18 09:20 FSH 3rd Generation 3.7 mIU/mL 04/24/18 09:20 Prolactin 18.2 ng/mL (3.0-18.9) 04/24/18 09:20 Cortisol AM Sample 18.4 ug/dL (4.46-22.7) 04/25/18 07:20 Urine Color Yellow (YELLOW) 04/22/18 18:53 Urine Appearance Slight-cloudy (CLEAR) 04/22/18 18:53 Urine pH 6.5 (4.7-8.0) 04/22/18 18:53 Ur Specific [place] 1.020 (1.005-1.035) 04/22/18 18:53 Urine Protein Negative mg/dL (<30 mg/dL) 04/22/18 18:53 Urine Glucose (UA) Negative mg/dL (NEGATIVE) 04/22/18 18:53 Urine Ketones Negative mg/dL (NEGATIVE) 04/22/18 18:53 Urine Blood Trace-intact (NEGATIVE) H 04/22/18 18:53 Urine Nitrate Negative (NEGATIVE) 04/22/18 18:53 Urine Bilirubin Negative (NEGATIVE) 04/22/18 18:53 Urine Urobilinogen 0.2 E.U./dL (<1 E.U./dL) 04/22/18 18:53 Ur Leukocyte Esterase Negative Ole/uL (NEGATIVE) 04/22/18 18:53 Urine RBC 5 - 10 /hpf (0-2) H 04/22/18 18:53 Urine WBC 2 - 5 /hpf (0-6) 04/22/18 18:53 Ur Epithelial Cells 6 - 8 /hpf (0-5) H 04/22/18 18:53 Urine Opiates Screen Negative (NEGATIVE) 04/22/18 18:53 Urine Methadone Screen Negative (NEGATIVE) 04/22/18 18:53 Ur Barbiturates Screen Negative (NEGATIVE) 04/22/18 18:53 Ur Phencyclidine Scrn Negative (NEGATIVE) 04/22/18 18:53 Ur Amphetamines Screen Negative (NEGATIVE) 04/22/18 18:53 U Benzodiazepines Scrn Positive (NEGATIVE) H 04/22/18 18:53 U Oth Cocaine Metabols Negative (NEGATIVE) 04/22/18 18:53 U Cannabinoids Screen Negative (NEGATIVE) 04/22/18 18:53 - Hospital Course Hospital Course: Upon Admission: Pt is a 42 yo F with pmhx of DVT, clots, MS, HTN, GERD and hypothyroidism who presents a period of dizziness and nausea which started at 1 today. She states that she was getting up from her couch when she noted that the room was spinning and then she noted her face was spinning. She then noted that her vision became blurry and she fell backwards onto the couch. She reports that she had LOC for an unknown period of time and when she awoke she denies having any bladder or bowel incontinence or tongue biting. She states that she also noted a R sided headache which started once she regained consciousness. Pt reports that she is complaint on all medications. At this time pt denies fevers, chills, SOB, cough, chest pain, palpitations, abd pain, n/v, diarrhea, dysuira or hematuria. She admits to mild headache and continued dizziness especially when she sits up and constipation. Pt is able to lay flat and is able to turn her head whle laying flat without issue. Hospital Course: Pt was being worked up for vertigo. In the ED pt had CT head done and it showed: There are small ill-defined areas of low attenuation within the the bilateral posterior frontoparietal white matter as above. Findings could conceivably represent artifact though underlying nonspecific gliosis from several possibility etiologies mentioned above to be excluded. Follow up MRI pending read. Neurology consulted and MRI Brain was ordered per their recs. MRI Brain showed: No evidence of acute infarct or intracranial hemorrhage, no evidence of mass lesion, mass effect or midline shift. Dilated sella tursica and partial empty sella. Pt was placed on fall and seizure precautions. Neuro checks were done q4h. PT was also consulted on the pt to ensure that the pt could ambulate well or if they needed rehab. TSH and free T4 was ordered due to pts hx of hypothyroidism. Pt noted to have low AM coritsol and hypotension, given hx of pituitary tumor will assess level of other pituitary hormones. Since the pt was noted to have a partial empty sella, pituitary hormones had to be assessed to evaluate how much the anterior pituitary was affected leading to a partial empty sella. All additional Endocrinology was consulted and addisons disease had to be ruled out. Cortisol stim test was ordered and the results came back wnl. Per endocrine, despite having earlier low AM cortisol (which could be explained by decreased albumin) given the pts normal stim test results no additional medication is necessary and close follow up with her PMD, no endocrine follow up was needed. The pt, working with PT, stated that her vertigo had improved and stated that she would follow up with her PMD after d/c. Pt stated that she was having R jaw pain 2/2 poor dentition and dental carries which then radiated to her R ear and caused more bouts of vertigo. Pt was encouraged to follow up with a dentist as an outpt for management of dental carries, since no abscess was noted on exam. Psych was also consulted to see the pt 2/2 depression from loss of her son last year. They had no further recs for the pt at this time and recommended some support groups that they could visit as an outpt. Neuro evaluated the pt and stated that there was no neuro eval needed and signed off the pt. Endocrine also signed off given the normal stim test. The medical plan for discharge was explained to the pt and the pt expressed understanding and agreement with the plan for discharge. All of the pts questions and concerns were addressed prior to d/c. For additional details please refer to the pts medical chart. Discharge Exam - Head Exam Head Exam: ATRAUMATIC, NORMAL INSPECTION, NORMOCEPHALIC - Eye Exam Eye Exam: EOMI, Normal appearance, PERRL. absent: Conjunctival injection, Nystagmus, Periorbital tenderness, Scleral icterus - ENT Exam Additional comments: Pt is noted to have multiple teeth with dental carries in the lower R posterior jaw. No abscess or drainage noted on exam - Respiratory Exam Respiratory Exam: Clear to PA & Lateral, NORMAL BREATHING PATTERN, UNREMARKABLE. absent: Accessory Muscle Use, Chest Wall Tenderness, Rales, Rhonchi, Wheezes, Respiratory Distress, Stridor - Cardiovascular Exam Cardiovascular Exam: RRR, +S1, +S2. absent: Gallop, Rubs - GI/Abdominal Exam GI & Abdominal Exam: Normal Bowel Sounds, Soft, Unremarkable. absent: Distended, Firm, Guarding, Tenderness - Extremities Exam Extremities exam: normal capillary refill, normal inspection, pedal pulses present - Back Exam Back exam: NORMAL INSPECTION. absent: CVA tenderness (L), CVA tenderness (R) - Neurological Exam Neurological exam: Alert, Oriented x3 - Psychiatric Exam Psychiatric exam: Flat Affect - Skin Skin Exam: Dry, Normal Color, Warm Discharge Plan - Follow Up Plan Condition: FAIR Disposition: HOME/ ROUTINE Instructions: Vertigo (a Type of Dizziness) (DC) Additional Instructions: - Please follow up with your PMD Dr Townsend upon discharge in 3-5 days. - Resume your home medications as directed. - You are given a script for rolling walker, as recommended by physical therapy. You can resume physical therapy at home as well to gain strength (you are also given a script for Physical therapy). - Follow up with a dentist for your right sided toothache in 2-4 days of discharge. - Return to the emergency room for any return of your symptoms. Referrals: Gretchen Townsend MD [Family Provider] - <Sanjay Domingo - Last Filed: 04/27/18 07:50> Provider - Provider Date of Admission: 04/24/18 09:07 Attending physician: Sanjay Domingo MD Consults: 04/22/18 18:42 Neurology Consult Routine Comment: Consulting Provider: Jerson Gallagher Consulting Physician: Jerson Gallagher Reason for Consult: Vertigo 04/23/18 09:44 Psychiatry Consult Routine Comment: Consulting Provider: Iona Corey Consulting Physician: Iona Corey Reason for Consult: Depression 04/24/18 09:05 Endocrinology Consult Routine Comment: Consulting Provider: Kat Briggs Consulting Physician: Kat Briggs Reason for Consult: low am cortisol, hypotension, addisons? Hospital Course - Lab Results Lab Results: Most Recent Lab Values WBC 5.4 10^3/uL (4.5-11.0) 04/25/18 06:00 RBC 3.42 10^6/uL (3.5-6.1) L 04/25/18 06:00 Hgb 10.5 g/dL (12.0-16.0) L 04/25/18 06:00 Hct 31.8 % (36.0-48.0) L 04/25/18 06:00 MCV 93.0 fl (80.0-105.0) 04/25/18 06:00 MCH 30.7 pg (25.0-35.0) 04/25/18 06:00 MCHC 33.0 g/dl (31.0-37.0) 04/25/18 06:00 RDW 12.6 % (11.5-14.5) 04/25/18 06:00 Plt Count 194 10^3/uL (120.0-450.0) 04/25/18 06:00 MPV 10.0 fl (7.0-11.0) 04/25/18 06:00 Neut % (Auto) 36.3 % (50.0-68.0) L 04/25/18 06:00 Lymph % (Auto) 53.4 % (22.0-35.0) H 04/25/18 06:00 Emmet % (Auto) 8.2 % (1.0-6.0) H 04/25/18 06:00 Eos % (Auto) 1.9 % (1.5-5.0) 04/25/18 06:00 Baso % (Auto) 0.2 % (0.0-3.0) 04/25/18 06:00 Lymph # (Auto) 2.9 (1.2-3.4) 04/25/18 06:00 Emmet # (Auto) 0.4 (0.1-0.6) 04/25/18 06:00 Eos # (Auto) 0.1 (0.0-0.7) 04/25/18 06:00 Baso # (Auto) 0.01 K/mm3 (0.0-2.0) 04/25/18 06:00 Absolute Neuts (auto) 1.96 (1.4-6.5) 04/25/18 06:00 PT 13.9 SECONDS (9.4-12.5) H 04/22/18 15:50 INR 1.25 04/22/18 15:50 APTT 35.3 Seconds (26.9-38.3) 04/22/18 15:50 Sodium 138 mmol/L (132-148) 04/25/18 06:00 Potassium 4.0 mmol/L (3.6-5.0) 04/25/18 06:00 Chloride 112 mmol/L (98-107) H 04/25/18 06:00 Carbon Dioxide 24 mmol/L (21-33) 04/25/18 06:00 Anion Gap 6 (10-20) L 04/25/18 06:00 BUN 19 mg/dL (7-21) 04/25/18 06:00 Creatinine 0.9 mg/dl (0.7-1.2) 04/25/18 06:00 Est GFR ( Amer) > 60 04/25/18 06:00 Est GFR (Non-Af Amer) > 60 04/25/18 06:00 POC Glucose (mg/dL) 95 mg/dL (65-110) 04/24/18 16:12 Random Glucose 91 mg/dL (70-110) 04/25/18 06:00 Calcium 8.5 mg/dL (8.4-10.5) 04/25/18 06:00 Total Bilirubin 0.3 mg/dL (0.2-1.3) 04/25/18 06:00 AST 17 U/L (14-36) 04/25/18 06:00 ALT 23 U/L (7-56) 04/25/18 06:00 Alkaline Phosphatase 48 U/L (38-126) 04/25/18 06:00 Total Protein 6.3 g/dL (5.8-8.3) 04/25/18 06:00 Albumin 3.1 g/dL (3.0-4.8) 04/25/18 06:00 Globulin 3.2 gm/dL 04/25/18 06:00 Albumin/Globulin Ratio 1.0 (1.1-1.8) L 04/25/18 06:00 Free T4 0.86 ng/dL (0.78-2.19) 04/22/18 20:06 TSH 3rd Generation 0.90 mIU/mL (0.46-4.68) 04/24/18 09:20 FSH 3rd Generation 3.7 mIU/mL 04/24/18 09:20 Prolactin 18.2 ng/mL (3.0-18.9) 04/24/18 09:20 Human Growth Hormone 0.1 ng/mL (<or=7.1) 04/24/18 09:20 Cortisol AM Sample 18.4 ug/dL (4.46-22.7) 04/25/18 07:20 ACTH 15 pg/mL (6-50) 04/24/18 09:20 Urine Color Yellow (YELLOW) 04/22/18 18:53 Urine Appearance Slight-cloudy (CLEAR) 04/22/18 18:53 Urine pH 6.5 (4.7-8.0) 04/22/18 18:53 Ur Specific [place] 1.020 (1.005-1.035) 04/22/18 18:53 Urine Protein Negative mg/dL (<30 mg/dL) 04/22/18 18:53 Urine Glucose (UA) Negative mg/dL (NEGATIVE) 04/22/18 18:53 Urine Ketones Negative mg/dL (NEGATIVE) 04/22/18 18:53 Urine Blood Trace-intact (NEGATIVE) H 04/22/18 18:53 Urine Nitrate Negative (NEGATIVE) 04/22/18 18:53 Urine Bilirubin Negative (NEGATIVE) 04/22/18 18:53 Urine Urobilinogen 0.2 E.U./dL (<1 E.U./dL) 04/22/18 18:53 Ur Leukocyte Esterase Negative Ole/uL (NEGATIVE) 04/22/18 18:53 Urine RBC 5 - 10 /hpf (0-2) H 04/22/18 18:53 Urine WBC 2 - 5 /hpf (0-6) 04/22/18 18:53 Ur Epithelial Cells 6 - 8 /hpf (0-5) H 04/22/18 18:53 Urine Opiates Screen Negative (NEGATIVE) 04/22/18 18:53 Urine Methadone Screen Negative (NEGATIVE) 04/22/18 18:53 Ur Barbiturates Screen Negative (NEGATIVE) 04/22/18 18:53 Ur Phencyclidine Scrn Negative (NEGATIVE) 04/22/18 18:53 Ur Amphetamines Screen Negative (NEGATIVE) 04/22/18 18:53 U Benzodiazepines Scrn Positive (NEGATIVE) H 04/22/18 18:53 U Oth Cocaine Metabols Negative (NEGATIVE) 04/22/18 18:53 U Cannabinoids Screen Negative (NEGATIVE) 04/22/18 18:53 Attending/Attestation - Attestation I have personally seen and examined this patient.: Yes I have fully participated in the care of the patient.: Yes I have reviewed all pertinent clinical information, including history, physical exam and plan: Yes Notes (Text): 42 year old female with past medical history of DVT, hypertension, GERD and hypothyroidism who presented with complaint of dizziness and presyncope. She was found to have low blood pressure and worked up by neurologist and hand packager. CT head and MRI brain showed partial empty sella. Her symptoms and bp improved with fluids. She was ambulating with physical therapist. She is cleared for discharge by neurology and endocrinology. Patient is discharged home on 04/25/18. Advised to follow up with pmd and neurosurgery. Sanjay Domingo MD Hospitalist.
== END 2018-04-25 18:17 | disposition home or self-care (01) | DRG 149 ==
LOC: ED 15:09 → ERH 17:26 → 3RNO 19:34 → OBSVTOIN 04-24 09:07 → 3RNO 04-24 17:09
PROVIDERS: ADMIT Internal Medicine; ATTEND Internal Medicine
DX: R42 Dizziness and giddiness (principal); I10 Essential (primary) hypertension; E03.9 Hypothyroidism, unspecified; E23.6 Other disorders of pituitary gland; G43.909 Migraine, unspecified, not intractable, without status migrainosus; M06.9 Rheumatoid arthritis, unspecified; I95.9 Hypotension, unspecified; K59.00 Constipation, unspecified; F06.30 Mood disorder due to known physiological condition, unspecified; K21.9 Gastro-esophageal reflux disease without esophagitis; E78.5 Hyperlipidemia, unspecified; K08.89 Other specified disorders of teeth and supporting structures; G47.30 Sleep apnea, unspecified; Z86.711 Personal history of pulmonary embolism; Z86.718 Personal history of other venous thrombosis and embolism; Z87.891 Personal history of nicotine dependence